=== PATIENT | male | born 1970 | race Two or more races ===

== ENCOUNTER 2023-08-30 05:51 | Inpatient (IN) | payer BC, OTHER ==
[~2023-08-30] VITALS: Ht 185.4 cm; Wt 80.8 kg
[2023-08-30 06:43] LABS: Basophils # (auto) 0.1 10 ^3/uL (0-0.2); Basophils % (auto) 0.5 % (0.0-2.0); Eosinophils # (auto) 0.1 10 ^3/uL (0-0.8); Hemoglobin 14.8 g/dL (13.5-17.5); Lymphocytes # (auto) 1.2 10 ^3/uL (0.4-5.4); Lymphocytes % (auto) 7.9 % (10.0-50.0); Mean Corpuscular Hemoglobin 30.2 pg (28.0-32.0); Mean Corpuscular Hgb Conc. 34.4 g/dL (32.0-36.0); Mean Corpuscular Volume 87.7 fL (80.0-100.0); Monocytes # (auto) 1.3 10 ^3/uL (0-1.3); Monocytes % (auto) 8.8 % (0.0-12.0); Neutrophils # (auto) 12.4 10 ^3/uL (1.6-8.6); Neutrophils % (auto) 81.8 % (37.0-80.0); Red Blood Cells 4.91 10^6/uL (4.5-5.90); Red Cell Distribution Width 12.6 % (11.8-14.3); White Blood Cell 15.2 10^3/uL (4.4-10.8)
[2023-08-30 07:02] LABS: Alanine Aminotransferase 12 U/L (7-40); Alkaline Phosphatase 61 U/L (46-116); Anion Gap 9 (5-15); Aspartate Aminotransferase 9 U/L (13-40); BUN/Creatinine Ratio 6.9 (10.0-20.0); Blood Urea Nitrogen 7 mg/dL (9-23); Carbon Dioxide 29 mmol/L (20-30); Chloride 94 mmol/L (98-107); Glucose 324 mg/dL (74-106); Lipase 55 U/L (12-53); Potassium 4.2 mmol/L (3.5-5.1); Sodium 132 mmol/L (136-145)
[2023-08-30 07:03] LABS: Albumin 4.7 g/dL (3.2-4.8); Bilirubin, Total 0.5 mg/dL (0.2-1.0); Total Protein 7.8 g/dL (5.7-8.2)
[2023-08-30 08:42] LABS: Urine Bacteria NONE SEEN /hpf (None Seen); Urine Blood Negative /uL (Negative); Urine Clarity Clear (Clear); Urine Color Yellow (Yellow); Urine Protein, UAD 1+ (Negative); Urine Specific Gravity 1.037 (1.001-1.035); Urine Urobilinogen Normal (Negative); Urine WBC 2 /hpf (0 - 3)
[2023-08-30] MEDS ORDERED: HYDROmorphone HCL 2 MG/ML VL/or syr IV ONE ×2 (10:30→16:30)
[2023-08-30] MEDS ORDERED: DONNATAL 5ml ORAL Elix (BELLADONNA ALK-PHENOBARB) PO ONE (10:30)
[2023-08-30] MEDS ORDERED: SODIUM CHLORIDE 0.9% 1,000 ML IVB ONE (10:30)
[2023-08-30] MEDS ORDERED: ONDANSETRON HCL 4 MG/2 ML VIAL IV ONE (10:30)
[2023-08-30] MEDS ORDERED: LIDOCAINE VISCOUS 2% 15ML UD PO ONE (10:30)
[2023-08-30] MEDS ORDERED: MAALOX PLUS or MAALOX 30 ML PO ONE (10:30)
[2023-08-30] MEDS ORDERED: IOHEXOL 300 MG/ML 100ML BOTTLE IJ ONE (10:48)
[2023-08-30] MEDS ORDERED: SODIUM CHLORIDE 0.9% 1,000 ML IV ONE (12:00)
[2023-08-30] MEDS ORDERED: PIPERACILLIN-TAZOB 3.375GM 100 ML IV ONE (12:00)
[2023-08-30 12:02] VITALS: PULSE 90; RESP 16; O2SAT 97
[2023-08-30] MEDS ORDERED: InsuLIN REG 1unit/0.01ml Soln (100units/ml) IV ONE (12:30)
[2023-08-30] MEDS ORDERED: LIDOCAINE 1%-Mpf/Epinephrine 1:200,000 30ml VIAL ONE (12:31)
[2023-08-30] MEDS ORDERED: BUPIVACAINE 0.5% P/F INJ 10 ML VIAL ONE (12:32)
[2023-08-30] MEDS ORDERED: SUCCINYLCHOLINE CHLORIDE 20 MG/ML 10ML VIAL IV ONE (13:04)
[2023-08-30] MEDS ORDERED: fentaNYL CITRATE 100 MCG/2 ML VL ONE ×2 (13:05→14:31)
[2023-08-30] MEDS ORDERED: MEPERIDINE HCL (50 MG/ML) 1 ML VIAL ONE (13:05)
[2023-08-30] MEDS ORDERED: MIDAZOLAM HCL 2MG/2ML 2ml VIAL (1mg/ml) ONE (13:05)
[2023-08-30] MEDS ORDERED: LIDOCAINE 2% JELLY 11ml (GLYDO) ONE (13:07)
[2023-08-30] MEDS ORDERED: DexAMETHasone SOD PHOS 10MG/1ML VIAL INJ ONE (13:31)
[2023-08-30] MEDS ORDERED: PROPOFOL 10 MG/ML 20 ML IV ONE (13:31)
[2023-08-30] MEDS ORDERED: ONDANSETRON HCL 4 MG/2 ML VIAL IV PRN (13:45)
[2023-08-30] MEDS ORDERED: fentaNYL CITRATE 100 MCG/2 ML VL IV PRN (13:45)
[2023-08-30] MEDS ORDERED: MORPHINE SULFATE 4 MG/ML SYR/VIAL IV PRN (13:45)
[2023-08-30] MEDS ORDERED: ACCU-CHEK COMFORT CURVE STRIP VI ONE (13:45)
[2023-08-30] MEDS ORDERED: MIDAZOLAM HCL 2MG/2ML 2ml VIAL (1mg/ml) IV PRN (13:45)
[2023-08-30] MEDS ORDERED: ePHEDrine SULFATE 50 MG/ML AMP IV PRN (13:45)
[2023-08-30] MEDS ORDERED: LABETALOL HCL 5 MG/ML 4ML SYRINGE IV PRN (13:45)
[2023-08-30] MEDS ORDERED: MEPERIDINE HCL (25 MG/ML) 1ML VIAL ONE (13:55)
[2023-08-30 13:57] LABS: INR 1.1 (0.9-1.15); Partial Thromboplastin Time 31.8 SEC (24.5-34.5); Prothrombin Time 11.5 sec (9.3-11.8)
[2023-08-30] MEDS ORDERED: ROCURONIUM 10MG/ML 10ML VIAL IV ONE (14:40)
[2023-08-30] MEDS ORDERED: SUGAMMADEX 200mg/2ml Vial (100MG/ML) IV ONE (15:02)
[2023-08-30] MEDS: HYDROmorphone HCL 2 MG/ML VL/or syr IV ONE ×2 (15:29→15:39)
[2023-08-30] MEDS ORDERED: ceFAZolin 1GM/50ML 50 ML IV ONE (15:45)
[2023-08-30] MEDS ORDERED: CEFTRIAXONE SODIUM 2 GM in D5W 5% 100 ML IV ONE (15:45)
[2023-08-30] MEDS ORDERED: D5W/SOD CHL 0.45%/KCL 20MEQ 1,000 ML IV ONE (15:45)
[2023-08-30] MEDS: HYDROmorphone HCL 2 MG/ML VL/or syr IV PRN ×2 (15:49→15:59)
[2023-08-30] MEDS ORDERED: NITROGLYCERIN 0.4 MG SL TAB SL PRN (16:30)
[2023-08-30] MEDS ORDERED: MORPHINE SULFATE INJ 2 MG/ml SYRG IV PRN (16:30)
[2023-08-30] MEDS ORDERED: GLIP10TA9 PO (17:20)
[2023-08-30] MEDS ORDERED: FENO145T27 PO (17:20)
[2023-08-30] MEDS ORDERED: METF-370 PO (17:20)
[2023-08-30] MEDS ORDERED: LOSA25TA15 PO (17:20)
[2023-08-30 17:32] VITALS: BP_SYST 117; PULSE 99; RESP 19; TEMP 98.1; O2SAT 97
[2023-08-30 20:00] VITALS: BP 124/80; PULSE 90; RESP 18; RESP 20; TEMP 97.9; O2SAT 98
[2023-08-30] MEDS: MORPHINE SULFATE INJ 2 MG/ml SYRG IV PRN (21:22)
[2023-08-30 22:00] VITALS: BP 124/80; PULSE 102; RESP 20; TEMP 98.1; O2SAT 98
[2023-08-30] MEDS ORDERED: DEXTROSE (50%) 50ML SYRG IV PRN (23:15)
[2023-08-30] MEDS ORDERED: SODIUM CHLORIDE 0.9% 1,000 ML IV SCH (23:30)
[2023-08-31] MEDS: MORPHINE SULFATE INJ 2 MG/ml SYRG IV PRN (03:33)
[2023-08-31 05:00] VITALS: BP 119/81; PULSE 94; RESP 17; TEMP 97.7; O2SAT 99
[2023-08-31] MEDS: ACCU-CHEK COMFORT CURVE STRIP VI SCH ×4 (05:39→17:29)
[2023-08-31] MEDS: InsuLIN REG 1unit/0.01ml Soln (100units/ml) SC SCH ×4 (05:45→17:29)
[2023-08-31 07:06] LABS: Basophils # (auto) 0 10 ^3/uL (0-0.2); Basophils % (auto) 0.3 % (0.0-2.0); Eosinophils # (auto) 0 10 ^3/uL (0-0.8); Hematocrit 36.6 % (41.0-53.0); Hemoglobin 12.7 g/dL (13.5-17.5); Lymphocytes # (auto) 1.2 10 ^3/uL (0.4-5.4); Lymphocytes % (auto) 9.5 % (10.0-50.0); Mean Corpuscular Hemoglobin 30.8 pg (28.0-32.0); Mean Corpuscular Hgb Conc. 34.7 g/dL (32.0-36.0); Mean Corpuscular Volume 88.7 fL (80.0-100.0); Monocytes # (auto) 1.1 10 ^3/uL (0-1.3); Monocytes % (auto) 8.8 % (0.0-12.0); Neutrophils # (auto) 10.2 10 ^3/uL (1.6-8.6); Neutrophils % (auto) 81.4 % (37.0-80.0); Nucleated Red Blood Cells % 0.1 %; Red Blood Cells 4.13 10^6/uL (4.5-5.90); Red Cell Distribution Width 12.5 % (11.8-14.3); White Blood Cell 12.6 10^3/uL (4.4-10.8)
[2023-08-31 07:07] LABS: Anion Gap 13 (5-15); Carbon Dioxide 24 mmol/L (20-30); Chloride 96 mmol/L (98-107); Potassium 4.1 mmol/L (3.5-5.1); Sodium 133 mmol/L (136-145)
[2023-08-31 07:08] LABS: Calcium 8.9 mg/dL (8.7-10.4)
[2023-08-31 07:13] LABS: BUN/Creatinine Ratio 7.1 (10.0-20.0); Blood Urea Nitrogen 8 mg/dL (9-23); Glucose 265 mg/dL (74-106)
[2023-08-31] MEDS ORDERED: HYDROmorphone HCL 2 MG/ML VL/or syr IV ONE (08:45)
[2023-08-31 09:00] VITALS: BP 118/73; PULSE 83; RESP 20; TEMP 98.4; O2SAT 98
[2023-08-31] MEDS: SODIUM CHLORIDE 0.9% 1,000 ML IV SCH (09:45)
[2023-08-31] MEDS ORDERED: metroNIDAZOLE 500MG/100ML 100 ML IV ONE (10:00)
[2023-08-31 13:00] VITALS: BP 118/78; PULSE 91; RESP 20; TEMP 98; O2SAT 96
[2023-08-31] MEDS: HYDROmorphone HCL 2 MG/ML VL/or syr IV PRN ×3 (14:11→22:08)
[2023-08-31 16:36] VITALS: BP 120/73; PULSE 99; RESP 20; TEMP 98.3; O2SAT 100
[2023-08-31] MEDS: metroNIDAZOLE 500MG/100ML 100 ML IV SCH (17:29)
[2023-08-31 20:00] VITALS: PULSE 107; RESP 18; O2SAT 96
[2023-08-31] MEDS: ONDANSETRON HCL 4 MG/2 ML VIAL IV PRN (22:07)
[2023-08-31 23:43] VITALS: BP 110/71; PULSE 107; RESP 19; TEMP 98.8; O2SAT 96
[2023-09-01] VITALS (7 sets, daily range): BP systolic 107–143; BP diastolic 56–86; PULSE 90–117; RESP 17–20; TEMP 97.5–98.4; O2SAT 92–98
[2023-09-01] MEDS: ACCU-CHEK COMFORT CURVE STRIP VI SCH ×5 (00:06→23:59)
[2023-09-01] MEDS: InsuLIN REG 1unit/0.01ml Soln (100units/ml) SC SCH ×4 (00:08→18:25)
[2023-09-01] MEDS: SODIUM CHLORIDE 0.9% 1,000 ML IV SCH ×3 (00:09→13:25)
[2023-09-01] MEDS: ONDANSETRON HCL 4 MG/2 ML VIAL IV PRN ×5 (01:47→20:27)
[2023-09-01] MEDS: HYDROmorphone HCL 2 MG/ML VL/or syr IV PRN ×5 (01:52→20:24)
[2023-09-01] MEDS: metroNIDAZOLE 500MG/100ML 100 ML IV SCH ×3 (01:52→18:15)
[2023-09-02] MEDS: InsuLIN REG 1unit/0.01ml Soln (100units/ml) SC SCH ×4 (00:09→18:36)
[2023-09-02] MEDS: HYDROmorphone HCL 2 MG/ML VL/or syr IV PRN ×6 (00:46→22:32)
[2023-09-02] MEDS: ONDANSETRON HCL 4 MG/2 ML VIAL IV PRN ×4 (00:54→22:27)
[2023-09-02] MEDS: metroNIDAZOLE 500MG/100ML 100 ML IV SCH ×3 (02:07→18:20)
[2023-09-02 05:00] VITALS: BP 130/92; PULSE 99; RESP 22; TEMP 97.5; O2SAT 95
[2023-09-02] MEDS: ACCU-CHEK COMFORT CURVE STRIP VI SCH ×3 (05:47→18:30)
[2023-09-02 08:00] VITALS: BP 134/86; PULSE 100; RESP 18; RESP 20; TEMP 98.6; O2SAT 96
[2023-09-02 10:26] LABS: Basophils # (auto) 0 10 ^3/uL (0-0.2); Eosinophils # (auto) 0.1 10 ^3/uL (0-0.8); Eosinophils % (auto) 0.6 % (0.0-7.0); Lymphocytes # (auto) 1.1 10 ^3/uL (0.4-5.4); Mean Corpuscular Volume 87.4 fL (80.0-100.0)
[2023-09-02 10:27] LABS: Basophils % (auto) 0.2 % (0.0-2.0); Hematocrit 35.4 % (41.0-53.0); Lymphocytes % (auto) 6.4 % (10.0-50.0); Mean Corpuscular Hemoglobin 29.7 pg (28.0-32.0); Monocytes # (auto) 0.9 10 ^3/uL (0-1.3); Monocytes % (auto) 5.4 % (0.0-12.0); Neutrophils # (auto) 14.5 10 ^3/uL (1.6-8.6); Neutrophils % (auto) 87.4 % (37.0-80.0); Nucleated Red Blood Cells % 0.1 %; Red Blood Cells 4.05 10^6/uL (4.5-5.90); White Blood Cell 16.7 10^3/uL (4.4-10.8)
[2023-09-02 11:00] LABS: Chloride 100 mmol/L (98-107); Potassium 3.9 mmol/L (3.5-5.1); Sodium 140 mmol/L (136-145)
[2023-09-02 11:01] LABS: Anion Gap 10 (5-15); Calcium 8.3 mg/dL (8.5-10.1); Carbon Dioxide 30 mmol/L (20-30)
[2023-09-02 11:06] LABS: Blood Urea Nitrogen 19 mg/dL (9-23); Glucose 227 mg/dL (74-106)
[2023-09-02 12:00] VITALS: BP 139/95; PULSE 95; RESP 18; TEMP 98.1; O2SAT 95
[2023-09-02] MEDS: SODIUM CHLORIDE 0.9% 1,000 ML IV SCH (15:05)
[2023-09-02 16:00] VITALS: BP 125/82; PULSE 92; RESP 18; TEMP 97.5; O2SAT 95
[2023-09-02 20:00] VITALS: BP 128/88; PULSE 96; RESP 16; TEMP 98.3
[2023-09-02 22:00] VITALS: BP 128/88; PULSE 96; RESP 16; TEMP 98.3; O2SAT 95
[2023-09-03] VITALS (7 sets, daily range): BP systolic 119–140; BP diastolic 82–86; PULSE 82–96; RESP 14–18; TEMP 97.7–98.8; O2SAT 91–96
[2023-09-03] MEDS: ACCU-CHEK COMFORT CURVE STRIP VI SCH ×4 (00:24→18:30)
[2023-09-03] MEDS: InsuLIN REG 1unit/0.01ml Soln (100units/ml) SC SCH ×4 (00:32→18:37)
[2023-09-03] MEDS: ONDANSETRON HCL 4 MG/2 ML VIAL IV PRN ×4 (02:36→21:04)
[2023-09-03] MEDS: metroNIDAZOLE 500MG/100ML 100 ML IV SCH ×3 (02:36→18:53)
[2023-09-03] MEDS: HYDROmorphone HCL 2 MG/ML VL/or syr IV PRN ×5 (02:55→21:16)
[2023-09-03] MEDS: SODIUM CHLORIDE 0.9% 1,000 ML IV SCH ×2 (04:25→17:45)
[2023-09-04] VITALS (7 sets, daily range): BP systolic 119–130; BP diastolic 80–89; PULSE 70–95; RESP 16–19; TEMP 36.7; O2SAT 93–98
[2023-09-04] MEDS: ONDANSETRON HCL 4 MG/2 ML VIAL IV PRN ×2 (01:25→05:56)
[2023-09-04] MEDS: HYDROmorphone HCL 2 MG/ML VL/or syr IV PRN ×4 (01:28→15:20)
[2023-09-04] MEDS: ACCU-CHEK COMFORT CURVE STRIP VI SCH ×4 (01:39→17:38)
[2023-09-04] MEDS: InsuLIN REG 1unit/0.01ml Soln (100units/ml) SC SCH ×4 (01:42→17:38)
[2023-09-04] MEDS: metroNIDAZOLE 500MG/100ML 100 ML IV SCH ×3 (02:38→17:39)
[2023-09-04 06:22] LABS: Basophils # (auto) 0 10 ^3/uL (0-0.2); Eosinophils # (auto) 0.3 10 ^3/uL (0-0.8); Hemoglobin 10.6 g/dL (13.5-17.5); Lymphocytes # (auto) 1.5 10 ^3/uL (0.4-5.4); Mean Corpuscular Volume 87.3 fL (80.0-100.0); White Blood Cell 14.3 10^3/uL (4.4-10.8)
[2023-09-04 06:24] LABS: Basophils % (auto) 0.3 % (0.0-2.0); Eosinophils % (auto) 1.9 % (0.0-7.0); Lymphocytes % (auto) 10.2 % (10.0-50.0); Mean Corpuscular Hemoglobin 29.9 pg (28.0-32.0); Mean Corpuscular Hgb Conc. 34.3 g/dL (32.0-36.0); Neutrophils # (auto) 11.6 10 ^3/uL (1.6-8.6); Neutrophils % (auto) 80.6 % (37.0-80.0); Nucleated Red Blood Cells % 0.1 %; Red Blood Cells 3.55 10^6/uL (4.5-5.90); Red Cell Distribution Width 12.6 % (11.8-14.3)
[2023-09-04 06:31] LABS: Chloride 98 mmol/L (98-107); Potassium 3.5 mmol/L (3.5-5.1); Sodium 134 mmol/L (136-145)
[2023-09-04 06:32] LABS: Anion Gap 5 (5-15); Calcium 8.1 mg/dL (8.7-10.4); Carbon Dioxide 31 mmol/L (20-30)
[2023-09-04 06:37] LABS: BUN/Creatinine Ratio 15.1 (10.0-20.0); Blood Urea Nitrogen 11 mg/dL (9-23); Glucose 268 mg/dL (74-106)
[2023-09-04] MEDS: SODIUM CHLORIDE 0.9% 1,000 ML IV SCH (07:05)
[2023-09-04] MEDS ORDERED: METR-344 PO (14:52)
[2023-09-04] MEDS ORDERED: HYDR-4902 PO (14:52)
[2023-09-04] MEDS ORDERED: AUG875T PO (14:52)
== END 2023-09-04 18:19 | disposition home or self-care (01) | DRG 329 ==
LOC: ER 05:51 → OVERFLOW 16:31 → WEST WING 17:39
PROVIDERS: ADMIT Internal Medicine Pulmonary Disease; ATTEND Student in an Organized Health Care Education/Training Program
PROC: 0DTJ0ZZ Resection of Appendix, Open Approach (ICD-10-PCS; 2023-08-30)
PROC: 0WJG4ZZ Inspection of Peritoneal Cavity, Percutaneous Endoscopic Approach (ICD-10-PCS; 2023-08-30)
PROC: 0D1K0Z4 Bypass Ascending Colon to Cutaneous, Open Approach (ICD-10-PCS; 2023-08-30)
PROC: 0DTF0ZZ Resection of Right Large Intestine, Open Approach (ICD-10-PCS; principal; 2023-08-30 13:10)
PROC: 0D9670Z Drainage of Stomach with Drainage Device, Via Natural or Artificial Opening (ICD-10-PCS; 2023-08-31)
DX: K63.9 Disease of intestine, unspecified (principal); K35.33 Acute appendicitis with perforation, localized peritonitis, and gangrene, with abscess; E11.65 Type 2 diabetes mellitus with hyperglycemia; Z53.31 Laparoscopic surgical procedure converted to open procedure; Z79.4 Long term (current) use of insulin; M10.9 Gout, unspecified; R19.03 Right lower quadrant abdominal swelling, mass and lump
CPT/HCPCS: 36415; 71045; 74176; 74177; 76705; 80048; 80053; 81001; 82962; 83036; 83605; 83690; 83735; 84484; 85025; 85610; 85730; 86850; 86900; 86901; 87070; 87075; 87077; 87086; 87186; 87205; 93005; 97110; 97116; 97163; 97530; G0378; J0330; J0690; J0696; J1100; J1815; J2250; J2405; J2543; J2704; J3490; J7060

== ENCOUNTER 2024-10-01 09:21 | Inpatient (IN) | payer BC ==
[~2024-10-01] VITALS: Ht 185.4 cm; Wt 91.6 kg
[~2024-10-01 09:21] MED LIST: AUG875T PO; FENO145T27 PO; GLIP10TA9 PO; HYDR-4902 PO; LOSA-533 PO; METF-370 PO; METR-344 PO
[2024-10-01] MEDS: MORPHINE SULFATE 4 MG/ML SYR/VIAL IV ONE (10:00)
[2024-10-01 10:03] LABS: Urine Bacteria None Seen /hpf (None Seen)
--- NOTE | 2024-10-01 10:10 | ED.PDOC ---
History of Present Illness HPI Comments 54M presents to the ER w/ no prior HX associated to the c/c of ABD pain. Pt reports on having LLQ pain which started 0730 this morning, associated w/ N/V. Pain type of a 5/10. PMHx of DM. SHx of Appendectomy and Tonsillectomy. Social Hx of Vape/cigarette use, occasional alcohol use, but denies substance use. Family Hx of Kidney stones and COPD. Denies chills, fever, N/V/D, SOB, CP or other associated symptoms, modifiers, or recent injuries at this time. Chief Complaint: Flank Pain Time Seen by MD: 09:45 Primary Care Provider: PIA Novak Notes: Nurses Notes, Medications, Allergies Allergies: Coded Allergies: NO KNOWN ALLERGIES (Unverified , 08/30/23) Home Meds Active Scripts Amoxicillin & Pot Clavulanate (AUGMENTIN TABLET) 875 Mg Tb, 875 MG PO BID for 7 Days, #14 TAB Prov:TAWANA SOTO MD 09/04/23 Hydrocodone-Acetaminophen (Hydrocodone Bitartrate/AC 5-325 mg) 1 Tab Tab, 1 TAB PO TIDP PRN for 5 Days, #15 TAB Prov:TAWANA SOTO MD 09/04/23 Metronidazole (Flagyl) 500 Mg Tab, 500 MG PO TID for 7 Days, #21 TAB Prov:TAWANA SOTO MD 09/04/23 Reported Medications Metformin Hydrochloride (Metformin Hcl) 500 Mg Tab, 1000 MG PO BID for 30 Days, MG 08/30/23 Fenofibrate (FENOFIBRATE) 145 Mg Tab, 145 MG PO DAILY, TAB 08/30/23 Losartan Potassium (Losartan Potassium) 25 Mg Tab, 25 MG PO DAILY for 30 Days, MG 08/30/23 Glipizide (Glipizide) 10 Mg Tab, 10 MG PO BID for 30 Days, MG 08/30/23 Information Source: Patient, Spouse Mode of Arrival: Ambulatory Severity: Moderate Timing: Hours Duration: Since onset, Hours Prehospital treatment: None Past Medical History PAST MEDICAL HISTORY: DM Surgical History: Appendectomy, Tonsillectomy Family History Family History: Reviewed,noncontributory to illness, Family hx of Kidney seven Family History (Other): Familyt Hx of Kindey Stones and COPD Social History Smoker: Cigarettes, Other (Vape) Alcohol: Occasionally Drugs: Denies Drug Use Lives In: Home Constitutional: denies: chills, diaphoresis, fatigue, fever, malaise, sweats, weakness, others EENTM: denies: blurred vision, double vision, ear bleeding, ear discharge, ear drainage, ear pain, ear ringing, eye pain, eye redness, hearing loss, mouth pain, mouth swelling, nasal discharge, nose bleeding, nose congestion, nose pain, photophobia, tearing, throat pain, throat swelling, voice changes, others Respiratory: denies: cough, hemoptysis, orthopnea, SOB at rest, shortness of breath, SOB with excertion, stridor, wheezing, others Cardiovascular: denies: chest pain, dizzy spells, diaphoresis, Dyspnea on exertion, edema, irregular heart beat, left arm pain, lightheadedness, palpitations, PND, syncope, others Gastrointestinal: reports: abdominal pain, nausea, vomiting; denies: abdomen distended, blood streaked bowels, constipated, diarrhea, dysphagia, difficulty swallowing, hematemesis, melena, poor appetite, poor fluid intake, rectal bleeding, rectal pain, others Genitourinary: denies: burning, dysuria, flank pain, frequency, hematuria, incontinence, penile discharge, penile sore, pain, testicle pain, testicle swelling, urgency, others Neurological: denies: dizziness, fainting, headache, left sided numbness, left sided weakness, numbness, paresthesia, pre-existing deficit, right sided numbness, right sided weakness, seizure, speech problems, tingling, tremors, weakness, others Musculoskeletal: denies: back pain, gout, joint pain, joint swelling, muscle pain, muscle stiffness, neck pain, others Integumetry: denies: bruises, change in color, change in hair/nails, dryness, laceration, lesions, lumps, rash, wounds, others Allergic/Immunocompromised: denies: Difficulty Healing, Frequent Infections, Hives, Itching, others Hematologic/Lymphatic: denies: anemia, blood clots, easy bleeding, easy bru ising, swollen glands, others Endocrine: denies: excessive hunger, excessive sweating, excessive thirst, e xcessive urination, flushing, intolerance to cold, intolerance to heat, unexplained weight gain, unexplained weight loss, others Psychiatric: denies: anxiety, bipolar disorder, depression, hopeless, panic disorder, schizophrenia, sleepless, suicidal, others All Other Systems: Reviewed and Negative Physical Exam General Appearance: Moderate Distress HEENT: Normal ENT Inspection, Pharynx Normal, TMs Normal Neck: Full Range of Motion, Non-Tender, Normal, Normal Inspection Respiratory: Chest Non-Tender, Lungs Clear, No Accessory Muscle Use, No Respiratory Distress, Normal Breath Sounds Cardiovascular: No Edema, No JVD, No Murmur, No Gallop, Normal Peripheral Pulses, Regular Rate/Rhythm Breast Exam: Deferred Gastrointestinal: LLQ, No Organomegaly, No Pulsatile Mass, Normal Bowel Sounds, Soft, Tenderness Genitalia: Deferred Pelvic: Deferred Rectal: Deferred Extremities: No calf tenderness, Normal capillary refill, No pedal edema Musculoskeletal : Apperance: Normal Neurologic: Alert, warranty coordinator II-XII nml as Tested, Motor Weakness, Normal Affect, Normal Mood, No Sensory Deficits Cerebellar Function: Normal Reflexes: Normal Skin: Dry, Normal Color, Warm Lymphatic: No Adenopathy Was a procedure done? Was a procedure done?: No Differential Dx Considerations may include: Diverticulitis, kidney stones, UTI X-Ray, Labs, Meds, VS Vital Signs Date Time Temp Pulse Resp B/P (MAP) Pulse Ox O2 Delivery O2 Flow Rate FiO2 10/01/24 11:38 86 21 133/86 10/01/24 11:15 112 24 155/100 10/01/24 10:29 67 12 100 Room Air* 0 21 10/01/24 10:29 74 16 139/83 (101) 100 10/01/24 09:51 97.1 84 20 133/86 (102) 99 Lab Test 10/01/24 10:09 10/01/24 10:02 Range/Units White Blood Count 12.1 H 4.4-10.8 10^3/uL Red Blood Count 5.06 4.5-5.90 10^6/uL Hemoglobin 16.0 13.5-17.5 g/dL Hematocrit 45.7 41.0-53.0 % Mean Corpuscular Volume 90.5 80.0-100.0 fL Mean Corpuscular Hemoglobin 31.7 28.0-32.0 pg Mean Corpuscular Hemoglobin Concent 35.0 32.0-36.0 g/dL Red Cell Distribution Width 13.1 11.8-14.3 % Platelet Count 261 140-450 10^3/uL Mean Platelet Volume 7.4 6.9-10.8 fL Neutrophils (%) (Auto) 80.8 H 37.0-80.0 % Lymphocytes (%) (Auto) 12.9 10.0-50.0 % Monocytes (%) (Auto) 4.4 0.0-12.0 % Eosinophils (%) (Auto) 1.5 0.0-7.0 % Basophils (%) (Auto) 0.4 0.0-2.0 % Neutrophils # (Auto) 9.8 H 1.6-8.6 10 ^3/uL Lymphocytes # (Auto) 1.6 0.4-5.4 10 ^3/uL Monocytes # (Auto) 0.5 0-1.3 10 ^3/uL Eosinophils # (Auto) 0.2 0-0.8 10 ^3/uL Basophils # (Auto) 0 0-0.2 10 ^3/uL Nucleated Red Blood Cells 0.1 % Sodium Level 138 136-145 mmol/L Potassium Level 4.1 3.5-5.1 mmol/L Chloride Level 104 98-107 mmol/L Carbon Dioxide Level 27 20-31 mmol/L Anion Gap 7 5-15 Blood Urea Nitrogen 12 9-23 mg/dL Creatinine 1.28 0.700-1.30 mg/dL Glomerular Filtration Rate Calc 67 >90 mL/min BUN/Creatinine Ratio 9.4 L 10.0-20.0 Serum Glucose 182 H 74-106 mg/dL Calcium Level 9.8 8.7-10.4 mg/dL Total Bilirubin 0.6 0.2-1.0 mg/dL Aspartate Amino Transferase (AST) 16 13-40 U/L Alanine Aminotransferase (ALT) 24 7-40 U/L Alkaline Phosphatase 45 L 46-116 U/L Total Protein 7.1 5.7-8.2 g/dL Albumin 4.7 3.2-4.8 g/dL Lipase 116 H 12-53 U/L Urine Color Red H Yellow Urine Clarity Cloudy H Clear Urine pH 5.5 5.0-9.0 Urine Specific [place] 1.028 1.001-1.035 Urine Protein 2+ H Negative Urine Ketones Negative Negative Urine Blood 3+ H Negative /uL Urine Nitrite Negative Negative Urine Bilirubin Negative Negative Urine Urobilinogen Normal Negative mg/dL Urine Leukocyte Esterase 1+ Negative /uL Urine RBC 8238 0 - 3 /hpf Urine WBC 16 0 - 3 /hpf Urine Squamous Epithelial Cells Few <5 /hpf Urine Bacteria None seen None Seen /hpf Urine Glucose Normal Normal mg/dL Current Medications Medications (Trade) Dose Ordered Sig/Elizabeth Route Start Time Stop Time Status Last Admin Ondansetron HCl (Zofran) 4 mg ONCE ONCE IV 10/01/24 10:00 10/01/24 10:01 DC 10/01/24 11:09 Sodium Chloride 500 ml @ 500 mls/hr Q1H ONCE IVB 10/01/24 10:00 10/01/24 10:59 DC 10/01/24 11:09 Hydromorphone HCl (Dilaudid Injection) 1 mg ONCE ONCE IV 10/01/24 11:15 10/01/24 11:16 DC 10/01/24 11:15 CT scan of the abdomen and pelvis shows: IMPRESSION: 1. Concentric wall thickening of the descending colon and sigmoid colon, suggestive of infectious/inflammatory colitis The patient was given Zofran 4 mg IV push The patient was given a normal saline bolus at 500 cc The patient was given Dilaudid 1 mg IV push Based on the findings on the CT scan, the patient was now being given Flagyl 500 mg IV push The urine test is also positive for UTI At this time, the patient's lipase is elevated at 116 which is consistent with possible pancreatitis The CBC shows an elevated white blood cell count of 12.1 At this time we are going to admit the patient to the hospitalist. We have discussed the findings with the patient and they are in agreement with the management. Images Reviewed?: Images reviewed and evaluated by me Time of 1ST Reevaluation: 10:15 Reevaluation 1ST: Unchanged Patient Education/Counseling: Diagnosis, Treatment, Prognosis Family Education/Counseling: Diagnosis, Treatment, Prognosis Departure 1 Departure Time of Disposition: 11:48 Impression: Primary Impression: Intractable abdominal pain Additional Impressions: Colitis UTI (urinary tract infection) Qualified Codes: N30.00 - Acute cystitis without hematuria Disposition: ADMITTED INPATIENT Admit to: Med Surg Condition: Fair Critical Care Note Critical Care Time?: No Stability Stability form required: Yes Unstable for transfer: ED Physician Assesment (Clinical assesment) Heart Score Heart Score: Heart Score Response (Comments) Value History N/A 0 EKG N/A 0 Age N/A 0 Risk Factors N/A 0 Troponin N/A 0 Total 0 I personally scribed for AFRTUN CELESTE MD ([email or web address]) on 10/01/24 at 10:10. Electronically submitted by Juan José Green ([email or web address]). FARTUN CELESTE MD Oct 01, 2024 10:10
[2024-10-01 10:13] LABS: Urine Blood 3+ /uL (Negative); Urine Color Red (Yellow); Urine Protein, UAD 2+ (Negative); Urine Specific Gravity 1.028 (1.001-1.035); Urine Urobilinogen Normal (Negative); Urine WBC 16 /hpf (0 - 3); Urine pH 5.5 (5.0-9.0)
[2024-10-01 10:14] LABS: Urine Clarity Cloudy (Clear)
[2024-10-01 10:16] LABS: Basophils # (auto) 0 10 ^3/uL (0-0.2); Basophils % (auto) 0.4 % (0.0-2.0); Eosinophils # (auto) 0.2 10 ^3/uL (0-0.8); Eosinophils % (auto) 1.5 % (0.0-7.0); Hematocrit 45.7 % (41.0-53.0); Lymphocytes # (auto) 1.6 10 ^3/uL (0.4-5.4); Lymphocytes % (auto) 12.9 % (10.0-50.0); Mean Corpuscular Hemoglobin 31.7 pg (28.0-32.0); Mean Corpuscular Volume 90.5 fL (80.0-100.0); Monocytes # (auto) 0.5 10 ^3/uL (0-1.3); Monocytes % (auto) 4.4 % (0.0-12.0); Neutrophils # (auto) 9.8 10 ^3/uL (1.6-8.6); Neutrophils % (auto) 80.8 % (37.0-80.0); Nucleated Red Blood Cells % 0.1 %; Platelet Count (auto) 261 10^3/uL (140-450); Red Blood Cells 5.06 10^6/uL (4.5-5.90); Red Cell Distribution Width 13.1 % (11.8-14.3); White Blood Cell 12.1 10^3/uL (4.4-10.8)
[2024-10-01 10:29] VITALS: PULSE 67; RESP 12; O2SAT 100
[2024-10-01 10:34] LABS: Alanine Aminotransferase 24 U/L (7-40); Albumin 4.7 g/dL (3.2-4.8); Alkaline Phosphatase 45 U/L (46-116); Anion Gap 7 (5-15); Aspartate Aminotransferase 16 U/L (13-40); BUN/Creatinine Ratio 9.4 (10.0-20.0); Bilirubin, Total 0.6 mg/dL (0.2-1.0); Blood Urea Nitrogen 12 mg/dL (9-23); Calcium 9.8 mg/dL (8.7-10.4); Carbon Dioxide 27 mmol/L (20-31); Chloride 104 mmol/L (98-107); Glucose 182 mg/dL (74-106); Lipase 116 U/L (12-53); Potassium 4.1 mmol/L (3.5-5.1); Sodium 138 mmol/L (136-145); Total Protein 7.1 g/dL (5.7-8.2)
[2024-10-01] MEDS ORDERED: HYDROMORPHONE HCL 1 MG/ML INJ IV ONE (11:00)
[2024-10-01] MEDS: ONDANSETRON HCL 4 MG/2 ML VIAL IV ONE (11:09)
[2024-10-01] MEDS: SODIUM CHLORIDE 0.9% 500 ML IVB ONE (11:09)
[2024-10-01] MEDS: HYDROmorphone HCL 2 MG/ML VL/or syr IV ONE (11:15)
--- NOTE | 2024-10-01 11:22 | DVH ---
Exam: CT CT AB PEL WO CON-NO ORAL OR IV History: llq pain Comparison Study: CT CT AB PEL WO CON-NO ORAL OR IV on DOS: 09/02/23, CT CT AB PEL WITH IV CON ONLY on DOS: 08/30/23 Technique: Multidetector spiral CT of the abdomen was performed from lung bases to pubic symphysis. Imaging was performed without IV contrast. Axial, coronal and sagittal multiplanar reformats were ob tained from the axial data set by the technologist. Radiation Dose : 1. Abdomen/Pelvis: CTDIvol 17 mGy, DLP 1120.19 mGy*cm. Findings: Evaluation of solid organs is limited due to lack of intravenous contrast use. Lung Bases: No acute or significant lung base finding. Normal heart size. No pleural or pericardial effusion. Liver: The liver is normal in size. No focal lesions. Gallbladder and Biliary Tree: Unremarkable Spleen: Unremarkable Pancreas: The pancreas is grossly normal in appearance. Adrenal Glands: Unremarkable Kidneys: Kidneys are grossly normal without calculi or hydronephrosis. Bladder: Grossly unremarkable for degree of distention. Bowel: The stomach is grossly normal in appearance. Concentric wall thickening of the descending colo n and sigmoid colon, suggestive of infectious/inflammatory colitis The appendix is not visualized; h owever, no secondary findings of acute appendicitis identified. Ascites: Absent Lymphadenopathy: No mesenteric, retroperitoneal or periportal lymphadenopathy. Abdominal Wall and Mesentery: Unremarkable. Vasculature: The visualized abdominal aorta is normal in size and caliber. Evaluation of abdominal a nd pelvic vessels is limited due to lack of intravenous contrast. Pelvic Organs: Unremarkable Musculoskeletal: No aggressive focal bony lesions, acute fractures or dislocation. IMPRESSION: 1. Concentric wall thickening of the descending colon and sigmoid colon, suggestive of infectious/inf lammatory colitis Radiation optimization: All CT scans at this facility use at least one of these dose optimization milli hniques: automated exposure control mA and/or kV adjustment per patient size (includes targeted exam s where dose is matched to clinical indication) or iterative reconstruction.
[2024-10-01] MEDS: metroNIDAZOLE 500MG/100ML 100 ML IV ONE (12:06)
--- NOTE | 2024-10-01 12:44 | DVHHP2 ---
History of Present Illness Reason for Visit: Abdominal pain History of Present Illness This 54-year-old male presents in the ED with a chief complaint of abdominal pain. The patient reports two weeks ago he was diagnosed with hematuria for which he was seen by urologist and all tests came back negative at that time. The patient reports continued to have blood in the urine but today he woke up with severe abdominal pain to left lower quadrant associated with nausea, vomiting, and some diarrhea for which prompted the patient to visit the emergency department. The patient denies hematemesis or melena. Past medical history of diabetes, hypertension, hyperlipidemia, tobacco use, and hematuria. Past Medical History As stated in HPI Past Surgical History Appendectomy Tonsillectomy Family History Reviewed, non-contributory to the management of this case. Past Social History Tobacco use Review of Systems Constitutional: Yes: Malaise; No: Fever, Chills, Sweats, Weakness, Other Eyes: No: Pain, Vision change, Conjunctivae inflammation, Eyelid inflammation, Other, Redness ENT: No: Ear pain, Ear discharge, Nose pain, Nose discharge, Nose congestion, Mouth pain, Mouth swelling, Throat pain, Throat swelling, Other Respiratory: No: Cough, Dry, Shortness of breath, SOB with excertion, Wheezing, Hemoptysis, Pleuritic Pain, Sputum, Wheezing, Other Cardiovascular: No: Chest Pain, Palpitations, Orthopnea, Paroxysmal Noc. Dyspnea, Edema, Lt Headedness, Other Gastrointestinal: Nausea, Vomiting, Abdominal Pain, Diarrhea; No: Constipation, Melena, Hematochezia, Other Genitourinary: No Dysuria, No Frequency, No Incontinence; Hematuria; No Retention; Other (Left flank pain) Musculoskeletal: No: other, neck pain, shoulder pain, arm pain, back pain, hand pain, leg pain, foot pain Skin: No: Rash, Lesions, Jaundice, Bruising, Other Neurological: No: Weakness, Numbness, Incoordination, Change in speech, Confusion, Seizures, Other Allergies: Coded Allergies: NO KNOWN ALLERGIES (Unverified , 08/30/23) Exam Vital Signs Vital Signs Date Time Temp Pulse Resp B/P (MAP) Pulse Ox O2 Delivery O2 Flow Rate FiO2 10/01/24 11:38 86 21 133/86 10/01/24 10:29 100 Room Air* 0 21 10/01/24 09:51 97.1 General Appearance: Alert, Oriented X3, Cooperative, moderate distress HEENT: Atraumatic, PERRLA, EOMI, Mucous membr. moist/pink Respiratory: Clear to auscultation Cardiovascular: Regular rate, Normal S1, Normal S2 Abdominal: Normal bowel sounds, Soft, Other (Mild tenderness to left lower quadrant, left CVA tenderness) Extremities: No clubbing, No cyanosis, No edema, Normal pulses Skin: No rashes, No breakdown, No significant lesion Neuro: Normal gait, Normal speech, Strength at 5/5 X4 ext, Normal tone Labs/Xrays Labs Test 10/01/24 10:09 10/01/24 10:02 Range/Units White Blood Count 12.1 H 4.4-10.8 10^3/uL Red Blood Count 5.06 4.5-5.90 10^6/uL Hemoglobin 16.0 13.5-17.5 g/dL Hematocrit 45.7 41.0-53.0 % Mean Corpuscular Volume 90.5 80.0-100.0 fL Mean Corpuscular Hemoglobin 31.7 28.0-32.0 pg Mean Corpuscular Hemoglobin Concent 35.0 32.0-36.0 g/dL Red Cell Distribution Width 13.1 11.8-14.3 % Platelet Count 261 140-450 10^3/uL Mean Platelet Volume 7.4 6.9-10.8 fL Neutrophils (%) (Auto) 80.8 H 37.0-80.0 % Lymphocytes (%) (Auto) 12.9 10.0-50.0 % Monocytes (%) (Auto) 4.4 0.0-12.0 % Eosinophils (%) (Auto) 1.5 0.0-7.0 % Basophils (%) (Auto) 0.4 0.0-2.0 % Neutrophils # (Auto) 9.8 H 1.6-8.6 10 ^3/uL Lymphocytes # (Auto) 1.6 0.4-5.4 10 ^3/uL Monocytes # (Auto) 0.5 0-1.3 10 ^3/uL Eosinophils # (Auto) 0.2 0-0.8 10 ^3/uL Basophils # (Auto) 0 0-0.2 10 ^3/uL Nucleated Red Blood Cells 0.1 % Sodium Level 138 136-145 mmol/L Potassium Level 4.1 3.5-5.1 mmol/L Chloride Level 104 98-107 mmol/L Carbon Dioxide Level 27 20-31 mmol/L Anion Gap 7 5-15 Blood Urea Nitrogen 12 9-23 mg/dL Creatinine 1.28 0.700-1.30 mg/dL Glomerular Filtration Rate Calc 67 >90 mL/min BUN/Creatinine Ratio 9.4 L 10.0-20.0 Serum Glucose 182 H 74-106 mg/dL Calcium Level 9.8 8.7-10.4 mg/dL Total Bilirubin 0.6 0.2-1.0 mg/dL Aspartate Amino Transferase (AST) 16 13-40 U/L Alanine Aminotransferase (ALT) 24 7-40 U/L Alkaline Phosphatase 45 L 46-116 U/L Total Protein 7.1 5.7-8.2 g/dL Albumin 4.7 3.2-4.8 g/dL Lipase 116 H 12-53 U/L Urine Color Red H Yellow Urine Clarity Cloudy H Clear Urine pH 5.5 5.0-9.0 Urine Specific [place] 1.028 1.001-1.035 Urine Protein 2+ H Negative Urine Ketones Negative Negative Urine Blood 3+ H Negative /uL Urine Nitrite Negative Negative Urine Bilirubin Negative Negative Urine Urobilinogen Normal Negative mg/dL Urine Leukocyte Esterase 1+ Negative /uL Urine RBC 8238 0 - 3 /hpf Urine WBC 16 0 - 3 /hpf Urine Squamous Epithelial Cells Few <5 /hpf Urine Bacteria None seen None Seen /hpf Urine Glucose Normal Normal mg/dL PROCEDURE(s): ABPL - CT AB PEL WO CON-NO ORAL OR IV REASON: llq pain ORDER NUMBER(s): [id number], ACCESSION NUMBER(s): [id number] Exam: CT CT AB PEL WO CON-NO ORAL OR IV History: llq pain Comparison Study: CT CT AB PEL WO CON-NO ORAL OR IV on DOS: 09/02/23, CT CT AB PEL WITH IV CON ONLY on DOS: 08/30/23 Technique: Multidetector spiral CT of the abdomen was performed from lung bases to pubic symphysis. Imaging was performed without IV contrast. Axial, coronal and sagittal multiplanar reformats were obtained from the axial data set by the technologist. Radiation Dose : 1. Abdomen/Pelvis: CTDIvol 17 mGy, DLP 1120.19 mGy*cm. Findings: Evaluation of solid organs is limited due to lack of intravenous contrast use. Lung Bases: No acute or significant lung base finding. Normal heart size. No pleural or pericardial effusion. Liver: The liver is normal in size. No focal lesions. Gallbladder and Biliary Tree: Unremarkable Spleen: Unremarkable Pancreas: The pancreas is grossly normal in appearance. Adrenal Glands: Unremarkable Kidneys: Kidneys are grossly normal without calculi or hydronephrosis. Bladder: Grossly unremarkable for degree of distention. Bowel: The stomach is grossly normal in appearance. Concentric wall thickening of the descending colon and sigmoid colon, suggestive of infectious/inflammatory colitis The appendix is not visualized; however, no secondary findings of acute appendicitis identified. Ascites: Absent Lymphadenopathy: No mesenteric, retroperitoneal or periportal lymphadenopathy. Abdominal Wall and Mesentery: Unremarkable. Vasculature: The visualized abdominal aorta is normal in size and caliber. Evaluation of abdominal and pelvic vessels is limited due to lack of intravenous contrast. Pelvic Organs: Unremarkable Musculoskeletal: No aggressive focal bony lesions, acute fractures or dis location. IMPRESSION: 1. Concentric wall thickening of the descending colon and sigmoid colon, suggestive of infectious/inflammatory colitis Assessment/Plan Assessment/Plan # Acute abdominal pain due to possible colitis # left flank pain # acute cystitis # hematuria # nausea and vomiting Admit to medical unit CT abd pel reviewed Blood and urine culture Ceftriaxone, metronidazole Kidney ultrasound pending Pain control Antiemetics PPI IV fluid Clear liquid diet and advance as tolerated # type 2 diabetes ISS Glipizide # hypertension Losartan # dyslipidemia Fenofibrate # tobacco use Smoking cessation counseled Nicotine patch Medical plan discussed with patient and RN Plan discussed with: Patient My Orders Orders - MJ ALMAGUER Procedure Category Date Status Time Kidney US 10/01/24 Taken 11:52 Date of Service: Oct 01, 2024 Billing Provider: MJ ALMAGUER Common Visit Codes: [id number] INP/OBS CARE (HIGH) MJ ALMAGUER Oct 01, 2024 12:44
[2024-10-01] MEDS ORDERED: DEXTROSE (50%) 50ML SYRG IV PRN ×2 (12:45)
[2024-10-01] MEDS ORDERED: ACETAMINOPHEN 325 MG TAB PO PRN (12:45)
[2024-10-01] MEDS: NICOTINE 7MG/24HR TOPICAL PATCH TD ONE (13:00)
--- NOTE | 2024-10-01 13:03 | DVH ---
INDICATION: Hematuria. TECHNIQUE: Multiple real-time sonographic images of the kidneys and bladder were obtained. COMPARISON: None FINDINGS: RIGHT kidney measures 11.2 cm in length. No hydronephrosis. LEFT kidney measures 11.9 cm in length. No hydronephrosis. No large intraluminal masses are seen in the bladder. Urinary bladder is contracted and unremarkable. Slightly enlarged prostate measuring up to 51 cc. IMPRESSION: 1. No hydronephrosis or nephrolithiasis. 2. Slightly enlarged prostate measuring up to 51 cc
[2024-10-01] MEDS: MORPHINE SULFATE INJ 2 MG/ml SYRG IV PRN (13:29)
[2024-10-01] MEDS: PANTOPRAZOLE 40 MG/10 ML VIAL INJ IV ONE (13:29)
[2024-10-01] MEDS: SODIUM CHLORIDE 0.9% 1,000 ML IV SCH (13:39)
[2024-10-01] MEDS: metroNIDAZOLE 500MG/100ML 100 ML IV SCH (14:00)
[2024-10-01 14:34] VITALS: BP 130/79; PULSE 72; RESP 20; TEMP 98.4; O2SAT 98
[2024-10-01] MEDS: HYDROcodone-ACET 5/325MG TAB PO PRN (15:53)
[2024-10-01] MEDS: ACCU-CHEK COMFORT CURVE STRIP VI SCH (16:32)
[2024-10-01] MEDS: InsuLIN REG 1unit/0.01ml Soln (100units/ml) SC SCH (16:38)
[2024-10-01] MEDS ORDERED: ACCU-CHEK COMFORT CURVE STRIP VI SCH (17:00)
[2024-10-01] MEDS: ONDANSETRON HCL 4 MG/2 ML VIAL IV PRN (17:37)
[2024-10-01 18:36] LABS: Triglycerides 170 mg/dL (< 150)
[2024-10-01 18:37] LABS: LDL Cholesterol 93 mg/dL (< 100)
[2024-10-01 18:38] LABS: Cholesterol 152 mg/dL (< 200); HDL Cholesterol 45 mg/dL (40-59)
[2024-10-01 19:46] VITALS: BP 147/83; PULSE 72; RESP 18; TEMP 97.4; O2SAT 99
[2024-10-01 21:00] VITALS: BP 140/89; PULSE 82; RESP 20; TEMP 97.8; O2SAT 96
[2024-10-01 21:08] VITALS: BP 140/89; PULSE 82; RESP 20; TEMP 97.8; O2SAT 97
[2024-10-01] MEDS: glipiZIDE 5 MG TAB PO SCH (22:00)
[2024-10-01] MEDS ORDERED: INSU1.2I SC (22:56)
[2024-10-01] MEDS ORDERED: SEMA7TAB2 PO (22:56)
[2024-10-01] MEDS ORDERED: TADA5TAB11 PO (23:01)
[2024-10-02] VITALS (7 sets, daily range): BP systolic 111–138; BP diastolic 71–81; PULSE 71–91; RESP 18–23; TEMP 97.8–98.2; O2SAT 3–99
[2024-10-02 05:19] LABS: Basophils # (auto) 0.1 10 ^3/uL (0-0.2); Basophils % (auto) 0.3 % (0.0-2.0); Eosinophils # (auto) 0.3 10 ^3/uL (0-0.8); Eosinophils % (auto) 1.7 % (0.0-7.0); Hematocrit 39.4 % (41.0-53.0); Hemoglobin 13.7 g/dL (13.5-17.5); Lymphocytes # (auto) 2.9 10 ^3/uL (0.4-5.4); Lymphocytes % (auto) 19.5 % (10.0-50.0); Mean Corpuscular Hemoglobin 31.5 pg (28.0-32.0); Mean Corpuscular Hgb Conc. 34.8 g/dL (32.0-36.0); Mean Corpuscular Volume 90.4 fL (80.0-100.0); Monocytes # (auto) 0.9 10 ^3/uL (0-1.3); Monocytes % (auto) 5.8 % (0.0-12.0); Neutrophils # (auto) 10.9 10 ^3/uL (1.6-8.6); Neutrophils % (auto) 72.7 % (37.0-80.0); Platelet Count (auto) 243 10^3/uL (140-450); Red Blood Cells 4.36 10^6/uL (4.5-5.90); Red Cell Distribution Width 13.3 % (11.8-14.3)
[2024-10-02 05:46] LABS: Alanine Aminotransferase 18 U/L (7-40); Alkaline Phosphatase 38 U/L (46-116); Anion Gap 7 (5-15); Aspartate Aminotransferase 12 U/L (13-40); BUN/Creatinine Ratio 7.1 (10.0-20.0); Bilirubin, Total 0.6 mg/dL (0.2-1.0); Blood Urea Nitrogen 12 mg/dL (9-23); Calcium 8.8 mg/dL (8.7-10.4); Carbon Dioxide 26 mmol/L (20-31); Chloride 108 mmol/L (98-107); Glucose 76 mg/dL (74-106); Potassium 3.3 mmol/L (3.5-5.1); Sodium 141 mmol/L (136-145); Total Protein 5.9 g/dL (5.7-8.2)
[2024-10-02] MEDS: cefTRIAXone 1GM/50ML D5W 50 ML IV SCH (09:45)
[2024-10-02] MEDS: PANTOPRAZOLE 40 MG/10 ML VIAL INJ IV SCH (09:46)
[2024-10-02] MEDS: FENOFIBRATE 145 MG PO SCH (09:46)
[2024-10-02] MEDS: LOSARTAN POTASSIUM 25 MG TAB PO SCH (09:47)
[2024-10-02] MEDS: NICOTINE 7MG/24HR TOPICAL PATCH TD SCH (09:48)
--- NOTE | 2024-10-02 11:26 | DVHPN2 ---
Subjective The patient seen and examined at bedside. No complaint today. Reviewed: Care Plan, H&P, Labs, Medications, Previous Orders, Radiology Changes from previous H/P or p: No Changes Eyes: No Pain, No Vision change, No Conjunctivae inflammation, No Eyelid inflammation, No Other, No Redness ENT: No Ear pain, No Ear discharge, No Nose pain, No Nose discharge, No Nose congestion, No Mouth pain, No Mouth swelling, No Throat pain, No Throat swelling, No Other Cardiovascular: No Chest Pain, No Palpitations, No Orthopnea, No Paroxysmal Noc. Dyspnea, No Edema, No Lt Headedness, No Other Respiratory: No Cough, No Dry, No Shortness of breath, No SOB with excertion, No Wheezing, No Hemoptysis, No Pleuritic Pain, No Sputum, No Other Gastrointestinal: Nausea, Vomiting, Abdominal Pain, Diarrhea; No Constipation, No Melena, No Hematochezia, No Other Genitourinary: No Dysuria, No Frequency, No Incontinence; Hematuria; No Retention; Other (Left flank pain) Musculoskeletal: No other, No neck pain, No shoulder pain, No arm pain, No back pain, No hand pain, No leg pain, No foot pain Skin: No Rash, No Lesions, No Jaundice, No Bruising, No Other Objective Vitals Vital Signs Date Time Temp Pulse Resp B/P (MAP) Pulse Ox O2 Delivery O2 Flow Rate FiO2 10/02/24 10:59 71 18 111/76 10/02/24 08:00 Room Air* 0 21 10/02/24 08:00 97.9 95 97.9 Intake/Output Intake and Output 10/02/24 07:00 Intake Total 800 ml Balance 800 ml Intake IV Total 800 ml General Appearance: Alert, Cooperative, No acute distress HEENT: Atraumatic, PERRLA, EOMI, Mucous membr. moist/pink Lungs: Clear to auscultation, Normal air movement Cardiovascular: Regular rate, Normal S1, Normal S2, No murmurs, Gallops, Rubs Abdomen: Normal bowel sounds, Soft, No tenderness Neuro: Strength at 5/5 X4 ext, Cranial nerves 3-12 NL Psych/Mental Status: Mental status NL Medications Current Medications Medications Dose Ordered Sig/Elizabeth Route Start Time Stop Time Status Last Admin Dose Admin Ceftriaxone Sodium 50 ml @ 100 mls/hr DAILY@09 IV 10/02/24 09:00 10/02/24 09:45 100 MLS/HR Metronidazole 100 ml @ 100 mls/hr Q8HR IV 10/01/24 14:00 10/02/24 05:41 100 MLS/HR Pantoprazole Sodium 40 mg DAILY IV 10/02/24 10:00 10/02/24 09:46 40 MG Sodium Chloride 1,000 ml @ 100 mls/hr Q10H IV 10/01/24 12:45 10/01/24 23:12 100 MLS/HR Acetaminophen/ Hydrocodone Bitart 1 tab Q4HP PRN PO 10/01/24 12:45 10/02/24 08:44 1 TAB Ondansetron HCl 4 mg Q4HP PRN IV 10/01/24 12:45 10/02/24 06:41 4 MG Acetaminophen 650 mg Q6HP PRN PO 10/01/24 12:45 Morphine Sulfate 2 mg Q4HPRN PRN IV 10/01/24 12:45 10/02/24 10:59 2 MG Losartan Potassium 25 mg DAILY PO 10/02/24 10:00 Patient Own Medication 145 mg DAILY PO 10/02/24 10:00 Glipizide 10 mg BID PO 10/01/24 22:00 Diagnostic Test (Pha) 1 strip ACHS 10/01/24 17:00 10/02/24 05:42 1 STRIP Insulin Human Regular ACHS SC 10/01/24 17:00 Dextrose 50 ml UD PRN IV 10/01/24 12:45 Nicotine 1 patch DAILY TD 10/02/24 10:00 Diagnostic Test (Pha) 1 strip ACHS 10/01/24 17:00 Cancel Dextrose 50 ml UD PRN IV 10/01/24 12:45 Cancel Laboratory Results Laboratory Tests 10/02/24 04:50 Chemistry Test 10/02/24 04:50 Albumin 4.0 g/dL (3.2-4.8) Calcium Level 8.8 mg/dL (8.7-10.4) Total Protein 5.9 g/dL (5.7-8.2) LFT Test 10/02/24 04:50 Alanine Aminotransferase (ALT) 18 U/L (7-40) Alkaline Phosphatase 38 U/L (46-116) L Aspartate Amino Transferase (AST) 12 U/L (13-40) L Total Bilirubin 0.6 mg/dL (0.2-1.0) Urinalysis Test 10/01/24 10:02 Urine Color Red (Yellow) H Urine Clarity Cloudy (Clear) H Urine pH 5.5 (5.0-9.0) Urine Specific [place] 1.028 (1.001-1.035) Urine Protein 2+ (Negative) H Urine Ketones Negative (Negative) Urine Blood 3+ /uL (Negative) H Urine Nitrite Negative (Negative) Urine Bilirubin Negative (Negative) Urine Urobilinogen Normal mg/dL (Negative) Urine Leukocyte Esterase 1+ /uL (Negative) Urine RBC 8238 /hpf (0 - 3) Urine WBC 16 /hpf (0 - 3) Urine Squamous Epithelial Cells Few /hpf (<5) Urine Bacteria None seen /hpf (None Seen) Urine Glucose Normal mg/dL (Normal) Microbiology Microbiology Date/Time Source Procedure Growth Status 10/01/24 10:02 Voided Urine Urine Culture - Preliminary Resulted Labs and/or images reviewed: Labs reviewed by me Assessment/Plan Assessment/Plan # Acute abdominal pain due to possible colitis # left flank pain # acute cystitis # hematuria # nausea and vomiting Plan Continuing current management with ceftriaxone and metronidazole. Continuing with Protonix. Continuing with clear liquid diet and advance as tolerated. Continuing with sliding scale insulin. Continuing with losartan. Continuing with find no fibrate. Advised smoking sensation. Continuing nicotine patch. Plan discussed with: Patient Date of Service: Oct 02, 2024 Billing Provider: CARON MOLINA MD Common Visit Codes: [id number] INP/OBS CARE(HIGH) CARON MOLINA MD Oct 02, 2024 11:26
[2024-10-02] MEDS: MORPHINE SULFATE 4 MG/ML SYR/VIAL IV PRN (15:11)
[2024-10-03 01:00] VITALS: BP 100/68; PULSE 74; RESP 18; TEMP 98.7; O2SAT 92
[2024-10-03 05:00] VITALS: BP 105/68; PULSE 87; RESP 18; TEMP 99; O2SAT 92
[2024-10-03 09:00] VITALS: BP 114/73; PULSE 85; RESP 17; TEMP 97.8; O2SAT 92
--- NOTE | 2024-10-03 11:36 | DVHPN2 ---
Subjective The patient seen and examined at bedside. Complain of abdominal pain. The patient one Dilaudid instead of morphine. The patient required pain medication around the clock. Reviewed: Care Plan, H&P, Labs, Medications, Previous Orders, Radiology Changes from previous H/P or p: No Changes Eyes: No Pain, No Vision change, No Conjunctivae inflammation, No Eyelid inflammation, No Other, No Redness ENT: No Ear pain, No Ear discharge, No Nose pain, No Nose discharge, No Nose congestion, No Mouth pain, No Mouth swelling, No Throat pain, No Throat swelling, No Other Cardiovascular: No Chest Pain, No Palpitations, No Orthopnea, No Paroxysmal Noc. Dyspnea, No Edema, No Lt Headedness, No Other Respiratory: No Cough, No Dry, No Shortness of breath, No SOB with excertion, No Wheezing, No Hemoptysis, No Pleuritic Pain, No Sputum, No Other Gastrointestinal: Nausea, Vomiting, Abdominal Pain, Diarrhea; No Constipation, No Melena, No Hematochezia, No Other Genitourinary: No Dysuria, No Frequency, No Incontinence; Hematuria; No Retention; Other (Left flank pain) Musculoskeletal: No other, No neck pain, No shoulder pain, No arm pain, No back pain, No hand pain, No leg pain, No foot pain Skin: No Rash, No Lesions, No Jaundice, No Bruising, No Other Objective Vitals Vital Signs Date Time Temp Pulse Resp B/P (MAP) Pulse Ox O2 Delivery O2 Flow Rate FiO2 10/03/24 10:56 83 18 117/77 10/03/24 09:00 97.8 92 97.8 10/03/24 08:00 Room Air* 0 21 Intake/Output Intake and Output 10/03/24 07:00 Intake Total 2990 ml Output Total 1290 ml Balance 1700 ml Intake Oral 1540 ml IV Total 1450 ml Output Urine Total 1290 ml General Appearance: Alert, Cooperative, No acute distress HEENT: Atraumatic, PERRLA, EOMI, Mucous membr. moist/pink Lungs: Clear to auscultation, Normal air movement Cardiovascular: Regular rate, Normal S1, Normal S2, No murmurs, Gallops, Rubs Abdomen: Normal bowel sounds, Soft, No tenderness Neuro: Strength at 5/5 X4 ext, Cranial nerves 3-12 NL Psych/Mental Status: Mental status NL Medications Current Medications Medications Dose Ordered Sig/Elizabeth Route Start Time Stop Time Status Last Admin Dose Admin Ceftriaxone Sodium 50 ml @ 100 mls/hr DAILY@09 IV 10/02/24 09:00 10/03/24 08:54 100 MLS/HR Metronidazole 100 ml @ 100 mls/hr Q8HR IV 10/01/24 14:00 10/03/24 05:34 100 MLS/HR Pantoprazole Sodium 40 mg DAILY IV 10/02/24 10:00 10/03/24 10:25 40 MG Sodium Chloride 1,000 ml @ 100 mls/hr Q10H IV 10/01/24 12:45 10/03/24 05:06 100 MLS/HR Acetaminophen/ Hydrocodone Bitart 1 tab Q4HP PRN PO 10/01/24 12:45 10/03/24 08:53 1 TAB Ondansetron HCl 4 mg Q4HP PRN IV 10/01/24 12:45 10/03/24 03:40 4 MG Acetaminophen 650 mg Q6HP PRN PO 10/01/24 12:45 Losartan Potassium 25 mg DAILY PO 10/02/24 10:00 Patient Own Medication 145 mg DAILY PO 10/02/24 10:00 Glipizide 10 mg BID PO 10/01/24 22:00 Diagnostic Test (Pha) 1 strip ACHS 10/01/24 17:00 10/03/24 05:40 1 STRIP Insulin Human Regular ACHS SC 10/01/24 17:00 Dextrose 50 ml UD PRN IV 10/01/24 12:45 Nicotine 1 patch DAILY TD 10/02/24 10:00 Diagnostic Test (Pha) 1 strip ACHS 10/01/24 17:00 Cancel Dextrose 50 ml UD PRN IV 10/01/24 12:45 Cancel Morphine Sulfate 4 mg Q3HPRN PRN IV 10/02/24 12:45 10/03/24 10:26 4 MG Laboratory Results Laboratory Tests 10/02/24 04:50 Urinalysis Test 10/01/24 10:02 Urine Color Red (Yellow) H Urine Clarity Cloudy (Clear) H Urine pH 5.5 (5.0-9.0) Urine Specific [place] 1.028 (1.001-1.035) Urine Protein 2+ (Negative) H Urine Ketones Negative (Negative) Urine Blood 3+ /uL (Negative) H Urine Nitrite Negative (Negative) Urine Bilirubin Negative (Negative) Urine Urobilinogen Normal mg/dL (Negative) Urine Leukocyte Esterase 1+ /uL (Negative) Urine RBC 8238 /hpf (0 - 3) Urine WBC 16 /hpf (0 - 3) Urine Squamous Epithelial Cells Few /hpf (<5) Urine Bacteria None seen /hpf (None Seen) Urine Glucose Normal mg/dL (Normal) Microbiology Microbiology Date/Time Source Procedure Growth Status 10/01/24 12:58 Blood Blood Culture - Preliminary NO GROWTH AFTER 24 HOURS OF INCUBATION. Resulted 10/01/24 10:02 Voided Urine Urine Culture - Preliminary Resulted Labs and/or images reviewed: Labs reviewed by me Assessment/Plan Assessment/Plan # Acute abdominal pain due to possible colitis # left flank pain # acute cystitis # hematuria # nausea and vomiting Plan Continuing current management with ceftriaxone and metronidazole. Continuing with Protonix. Continuing with clear liquid diet and advance as tolerated. Continuing with sliding scale insulin. Continuing with losartan. Continuing with fenofibrate. Advised smoking sensation. Continuing nicotine patch. I explained to the patient that hip pain is under control and I am we will not change morphine to Dilaudid. We will increase morphine to 4 mg IV q.3 hours p.r.n. for severe pain. Plan discussed with: Patient My Orders Orders - CARON MOLINA MD Procedure Category Date Status Time Morphine Sulfate PHA 10/02/24 In Process Injection 12:45 Date of Service: Oct 03, 2024 Billing Provider: CARON MOLINA MD Common Visit Codes: [id number] INP/OBS CARE(HIGH) CARON MOLINA MD Oct 03, 2024 11:36
[2024-10-03 13:00] VITALS: BP 134/85; PULSE 82; RESP 16; TEMP 98; O2SAT 93
[2024-10-03 17:00] VITALS: BP 138/82; PULSE 104; RESP 18; TEMP 99; O2SAT 93
[2024-10-03 22:00] VITALS: BP 130/81; PULSE 108; RESP 19; TEMP 98.3; O2SAT 93
[2024-10-04] VITALS (8 sets, daily range): BP systolic 112–131; BP diastolic 63–81; PULSE 68–100; RESP 16–19; TEMP 97.9–98.7; O2SAT 92–95
--- NOTE | 2024-10-04 11:33 | DVHPN2 ---
Subjective The patient seen and examined at bedside. The patient is still complain of severe abdominal pain. The patient is still adamant request Dilaudid.. Reviewed: Care Plan, H&P, Labs, Medications, Previous Orders, Radiology Changes from previous H/P or p: No Changes Eyes: No Pain, No Vision change, No Conjunctivae inflammation, No Eyelid inflammation, No Other, No Redness ENT: No Ear pain, No Ear discharge, No Nose pain, No Nose discharge, No Nose congestion, No Mouth pain, No Mouth swelling, No Throat pain, No Throat swelling, No Other Cardiovascular: No Chest Pain, No Palpitations, No Orthopnea, No Paroxysmal Noc. Dyspnea, No Edema, No Lt Headedness, No Other Respiratory: No Cough, No Dry, No Shortness of breath, No SOB with excertion, No Wheezing, No Hemoptysis, No Pleuritic Pain, No Sputum, No Other Gastrointestinal: Nausea, Vomiting, Abdominal Pain, Diarrhea; No Constipation, No Melena, No Hematochezia, No Other Genitourinary: No Dysuria, No Frequency, No Incontinence; Hematuria; No Retention; Other (Left flank pain) Musculoskeletal: No other, No neck pain, No shoulder pain, No arm pain, No back pain, No hand pain, No leg pain, No foot pain Skin: No Rash, No Lesions, No Jaundice, No Bruising, No Other Objective Vitals Vital Signs Date Time Temp Pulse Resp B/P (MAP) Pulse Ox O2 Delivery O2 Flow Rate FiO2 10/04/24 10:12 131/81 10/04/24 09:56 68 16 10/04/24 09:00 98.6 93 98.6 10/03/24 20:00 Room Air* 0 21 Intake/Output Intake and Output 10/04/24 07:00 Intake Total 1750 ml Output Total 750 ml Balance 1000 ml Intake Oral 300 ml IV Total 1450 ml Output Urine Total 750 ml # Voids 7 General Appearance: Alert, Cooperative, No acute distress HEENT: Atraumatic, PERRLA, EOMI, Mucous membr. moist/pink Lungs: Clear to auscultation, Normal air movement Cardiovascular: Regular rate, Normal S1, Normal S2, No murmurs, Gallops, Rubs Abdomen: Normal bowel sounds, Soft, No tenderness Neuro: Strength at 5/5 X4 ext, Cranial nerves 3-12 NL Psych/Mental Status: Mental status NL Medications Current Medications Medications Dose Ordered Sig/Elizabeth Route Start Time Stop Time Status Last Admin Dose Admin Ceftriaxone Sodium 50 ml @ 100 mls/hr DAILY@09 IV 10/02/24 09:00 10/04/24 09:55 100 MLS/HR Metronidazole 100 ml @ 100 mls/hr Q8HR IV 10/01/24 14:00 10/04/24 06:16 100 MLS/HR Pantoprazole Sodium 40 mg DAILY IV 10/02/24 10:00 10/04/24 09:57 40 MG Sodium Chloride 1,000 ml @ 100 mls/hr Q10H IV 10/01/24 12:45 10/03/24 16:44 100 MLS/HR Acetaminophen/ Hydrocodone Bitart 1 tab Q4HP PRN PO 10/01/24 12:45 10/04/24 11:12 1 TAB Ondansetron HCl 4 mg Q4HP PRN IV 10/01/24 12:45 10/04/24 09:56 4 MG Acetaminophen 650 mg Q6HP PRN PO 10/01/24 12:45 Losartan Potassium 25 mg DAILY PO 10/02/24 10:00 10/04/24 10:12 25 MG Patient Own Medication 145 mg DAILY PO 10/02/24 10:00 Glipizide 10 mg BID PO 10/01/24 22:00 Diagnostic Test (Pha) 1 strip ACHS 10/01/24 17:00 10/03/24 05:40 1 STRIP Insulin Human Regular ACHS SC 10/01/24 17:00 Dextrose 50 ml UD PRN IV 10/01/24 12:45 Nicotine 1 patch DAILY TD 10/02/24 10:00 Diagnostic Test (Pha) 1 strip ACHS 10/01/24 17:00 Cancel Dextrose 50 ml UD PRN IV 10/01/24 12:45 Cancel Morphine Sulfate 4 mg Q3HPRN PRN IV 10/02/24 12:45 10/04/24 09:56 4 MG Laboratory Results Laboratory Tests 10/02/24 04:50 Urinalysis Test 10/01/24 10:02 Urine Color Red (Yellow) H Urine Clarity Cloudy (Clear) H Urine pH 5.5 (5.0-9.0) Urine Specific [place] 1.028 (1.001-1.035) Urine Protein 2+ (Negative) H Urine Ketones Negative (Negative) Urine Blood 3+ /uL (Negative) H Urine Nitrite Negative (Negative) Urine Bilirubin Negative (Negative) Urine Urobilinogen Normal mg/dL (Negative) Urine Leukocyte Esterase 1+ /uL (Negative) Urine RBC 8238 /hpf (0 - 3) Urine WBC 16 /hpf (0 - 3) Urine Squamous Epithelial Cells Few /hpf (<5) Urine Bacteria None seen /hpf (None Seen) Urine Glucose Normal mg/dL (Normal) Microbiology Microbiology Date/Time Source Procedure Growth Status 10/01/24 12:58 Blood Blood Culture - Preliminary NO GROWTH AFTER 48 HOURS OF INCUBATION. Resulted 10/01/24 10:02 Voided Urine Urine Culture - Final Complete Labs and/or images reviewed: Labs reviewed by me Assessment/Plan Assessment/Plan # Acute abdominal pain due to possible colitis # left flank pain # acute cystitis # hematuria # nausea and vomiting Plan Continuing current management with ceftriaxone and metronidazole. Continuing with Protonix. Continuing with clear liquid diet and advance as tolerated. Continuing with sliding scale insulin. Continuing with losartan. Continuing with fenofibrate. Advised smoking sensation. Continuing nicotine patch. I explained to the patient that his pain is under control and I am we will not change morphine to Dilaudid. Continuing morphine to 4 mg IV q.3 hours p.r.n. for severe pain. Discussed with patient and at bedside regarding to abdominal pain due to colitis as it expected. The pain will improve when his colitis improved. I am not suggest to increase pain medication to Dilaudid because the more medication he takes, he might have constipation and med the pain worse. Encouraged the patient to deescalate his pain medication and not taking it around the clock. GI consult Plan discussed with: Patient, Spouse My Orders Orders - CARON MOLINA MD Procedure Category Date Status Time * Gi Dvh Collection Technician CONS 10/04/24 Transmitted 10:07 Complete Blood Count LAB 10/04/24 Logged 10:18 Basic Metabolic Panel LAB 10/04/24 Logged 10:18 Date of Service: Oct 04, 2024 Billing Provider: CARON MOLINA MD Common Visit Codes: [id number] INP/OBS CARE(HIGH) CARON MOLINA MD Oct 04, 2024 11:33
[2024-10-04 12:09] LABS: Basophils # (auto) 0 10 ^3/uL (0-0.2); Basophils % (auto) 0.1 % (0.0-2.0); Eosinophils # (auto) 0 10 ^3/uL (0-0.8); Eosinophils % (auto) 0.3 % (0.0-7.0); Hematocrit 39.7 % (41.0-53.0); Hemoglobin 13.8 g/dL (13.5-17.5); Lymphocytes # (auto) 0.9 10 ^3/uL (0.4-5.4); Lymphocytes % (auto) 5.8 % (10.0-50.0); Mean Corpuscular Hemoglobin 31.1 pg (28.0-32.0); Mean Corpuscular Hgb Conc. 34.9 g/dL (32.0-36.0); Mean Corpuscular Volume 89.1 fL (80.0-100.0); Monocytes # (auto) 0.7 10 ^3/uL (0-1.3); Monocytes % (auto) 4.7 % (0.0-12.0); Neutrophils % (auto) 89.1 % (37.0-80.0); Platelet Count (auto) 246 10^3/uL (140-450); Red Blood Cells 4.45 10^6/uL (4.5-5.90); Red Cell Distribution Width 12.8 % (11.8-14.3); White Blood Cell 15.7 10^3/uL (4.4-10.8)
[2024-10-04 12:19] LABS: Chloride 102 mmol/L (98-107); Potassium 3.8 mmol/L (3.5-5.1); Sodium 137 mmol/L (136-145)
[2024-10-04 12:20] LABS: Anion Gap 12 (5-15); Carbon Dioxide 23 mmol/L (20-31)
[2024-10-04 12:21] LABS: Calcium 9.4 mg/dL (8.7-10.4)
[2024-10-04 12:25] LABS: Blood Urea Nitrogen 11 mg/dL (9-23); Glucose 171 mg/dL (74-106)
[2024-10-05] VITALS (8 sets, daily range): BP systolic 122–142; BP diastolic 78–87; PULSE 79–95; RESP 18–20; TEMP 98.1–98.4; O2SAT 94–98
--- NOTE | 2024-10-05 11:48 | DVHPN2 ---
Subjective The patient seen and examined at bedside. No complaint today. Reviewed: Care Plan, H&P, Labs, Medications, Previous Orders, Radiology Changes from previous H/P or p: No Changes Eyes: No Pain, No Vision change, No Conjunctivae inflammation, No Eyelid inflammation, No Other, No Redness ENT: No Ear pain, No Ear discharge, No Nose pain, No Nose discharge, No Nose congestion, No Mouth pain, No Mouth swelling, No Throat pain, No Throat swelling, No Other Cardiovascular: No Chest Pain, No Palpitations, No Orthopnea, No Paroxysmal Noc. Dyspnea, No Edema, No Lt Headedness, No Other Respiratory: No Cough, No Dry, No Shortness of breath, No SOB with excertion, No Wheezing, No Hemoptysis, No Pleuritic Pain, No Sputum, No Other Gastrointestinal: Nausea, Vomiting, Abdominal Pain, Diarrhea; No Constipation, No Melena, No Hematochezia, No Other Genitourinary: No Dysuria, No Frequency, No Incontinence; Hematuria; No Retention; Other (Left flank pain) Musculoskeletal: No other, No neck pain, No shoulder pain, No arm pain, No back pain, No hand pain, No leg pain, No foot pain Skin: No Rash, No Lesions, No Jaundice, No Bruising, No Other Objective Vitals Vital Signs Date Time Temp Pulse Resp B/P (MAP) Pulse Ox O2 Delivery O2 Flow Rate FiO2 10/05/24 11:23 93 18 142/86 10/05/24 08:30 98.4 98 98.4 10/04/24 20:00 Room Air* 0 21 Intake/Output Intake and Output 10/05/24 07:00 Intake Total 100 ml Balance 100 ml IV Total 100 ml General Appearance: Alert, Cooperative, No acute distress HEENT: Atraumatic, PERRLA, EOMI, Mucous membr. moist/pink Lungs: Clear to auscultation, Normal air movement Cardiovascular: Regular rate, Normal S1, Normal S2, No murmurs, Gallops, Rubs Abdomen: Normal bowel sounds, Soft, No tenderness Neuro: Strength at 5/5 X4 ext, Cranial nerves 3-12 NL Psych/Mental Status: Mental status NL Medications Current Medications Medications Dose Ordered Sig/Elizabeth Route Start Time Stop Time Status Last Admin Dose Admin Ceftriaxone Sodium 50 ml @ 100 mls/hr DAILY@09 IV 10/02/24 09:00 10/05/24 08:11 100 MLS/HR Metronidazole 100 ml @ 100 mls/hr Q8HR IV 10/01/24 14:00 10/05/24 05:42 100 MLS/HR Pantoprazole Sodium 40 mg DAILY IV 10/02/24 10:00 10/05/24 08:11 40 MG Sodium Chloride 1,000 ml @ 100 mls/hr Q10H IV 10/01/24 12:45 10/04/24 12:26 100 MLS/HR Acetaminophen/ Hydrocodone Bitart 1 tab Q4HP PRN PO 10/01/24 12:45 10/05/24 09:20 1 TAB Ondansetron HCl 4 mg Q4HP PRN IV 10/01/24 12:45 10/05/24 08:10 4 MG Acetaminophen 650 mg Q6HP PRN PO 10/01/24 12:45 Losartan Potassium 25 mg DAILY PO 10/02/24 10:00 10/05/24 09:21 25 MG Patient Own Medication 145 mg DAILY PO 10/02/24 10:00 Glipizide 10 mg BID PO 10/01/24 22:00 Diagnostic Test (Pha) 1 strip ACHS 10/01/24 17:00 10/04/24 17:00 1 STRIP Insulin Human Regular ACHS SC 10/01/24 17:00 Dextrose 50 ml UD PRN IV 10/01/24 12:45 Nicotine 1 patch DAILY TD 10/02/24 10:00 Diagnostic Test (Pha) 1 strip ACHS 10/01/24 17:00 Cancel Dextrose 50 ml UD PRN IV 10/01/24 12:45 Cancel Morphine Sulfate 4 mg Q3HPRN PRN IV 10/02/24 12:45 10/05/24 11:23 4 MG Laboratory Results Laboratory Tests 10/04/24 11:56 Chemistry Test 10/04/24 11:56 Calcium Level 9.4 mg/dL (8.7-10.4) Urinalysis Test 10/01/24 10:02 Urine Color Red (Yellow) H Urine Clarity Cloudy (Clear) H Urine pH 5.5 (5.0-9.0) Urine Specific [place] 1.028 (1.001-1.035) Urine Protein 2+ (Negative) H Urine Ketones Negative (Negative) Urine Blood 3+ /uL (Negative) H Urine Nitrite Negative (Negative) Urine Bilirubin Negative (Negative) Urine Urobilinogen Normal mg/dL (Negative) Urine Leukocyte Esterase 1+ /uL (Negative) Urine RBC 8238 /hpf (0 - 3) Urine WBC 16 /hpf (0 - 3) Urine Squamous Epithelial Cells Few /hpf (<5) Urine Bacteria None seen /hpf (None Seen) Urine Glucose Normal mg/dL (Normal) Microbiology Microbiology Date/Time Source Procedure Growth Status 10/01/24 12:58 Blood Blood Culture - Preliminary NO GROWTH AFTER 72 HOURS OF INCUBATION. Resulted 10/01/24 10:02 Voided Urine Urine Culture - Final Complete Labs and/or images reviewed: Labs reviewed by me Assessment/Plan Assessment/Plan # Acute abdominal pain due to possible colitis # left flank pain # acute cystitis # hematuria # nausea and vomiting Plan Continuing current management with ceftriaxone and metronidazole. Continuing with Protonix. Continuing with clear liquid diet and advance as tolerated. Continuing with sliding scale insulin. Continuing with losartan. Continuing with fenofibrate. Advised smoking sensation. Continuing nicotine patch. I explained to the patient that his pain is under control and I am we will not change morphine to Dilaudid. Continue morphine to 4 mg IV q.3 hours p.r.n. for severe pain. Waiting for GI specialist to see the patient. Continuing IV antibiotics.. Plan discussed with: Patient Date of Service: Oct 05, 2024 Billing Provider: CARON MOLINA MD Common Visit Codes: [id number] INP/OBS CARE(HIGH) CARON MOLINA MD Oct 05, 2024 11:47
[2024-10-05 13:17] LABS: Basophils # (auto) 0 10 ^3/uL (0-0.2); Basophils % (auto) 0.2 % (0.0-2.0); Eosinophils # (auto) 0.1 10 ^3/uL (0-0.8); Eosinophils % (auto) 0.9 % (0.0-7.0); Hemoglobin 13.4 g/dL (13.5-17.5); Lymphocytes # (auto) 1.2 10 ^3/uL (0.4-5.4); Mean Corpuscular Hemoglobin 31.3 pg (28.0-32.0); Mean Corpuscular Hgb Conc. 35.3 g/dL (32.0-36.0); Mean Corpuscular Volume 88.8 fL (80.0-100.0); Monocytes # (auto) 0.9 10 ^3/uL (0-1.3); Neutrophils # (auto) 12.4 10 ^3/uL (1.6-8.6); Neutrophils % (auto) 84.9 % (37.0-80.0); Platelet Count (auto) 294 10^3/uL (140-450); Red Blood Cells 4.28 10^6/uL (4.5-5.90); Red Cell Distribution Width 12.7 % (11.8-14.3); White Blood Cell 14.6 10^3/uL (4.4-10.8)
[2024-10-05 13:35] LABS: Chloride 102 mmol/L (98-107); Potassium 3.5 mmol/L (3.5-5.1); Sodium 137 mmol/L (136-145)
[2024-10-05 13:36] LABS: Anion Gap 10 (5-15); Calcium 9.4 mg/dL (8.7-10.4); Carbon Dioxide 25 mmol/L (20-31)
[2024-10-05 13:41] LABS: BUN/Creatinine Ratio 8.6 (10.0-20.0); Blood Urea Nitrogen 12 mg/dL (9-23); Glucose 183 mg/dL (74-106)
--- NOTE | 2024-10-05 21:29 | DVHINCON2 ---
Date of service: Oct 05, [address] Rosas Reason for Consultation Abdominal pain slight diarrhea History of Present Illness This is a 54-year-old male presented to the emergency room with complaints of abdominal pain in the left lower quadrant with associated diarrhea and nausea was in the left lower quadrant. Patient had some urological symptoms for which she had some workup in the past for Urology which was negative. Patient had a CT scan done which showed colitis and hence the reason for the GI consult because of the abdominal pain diarrhea as well as a colon possible colitis in the CT scan stool tests ordered but pending Past Medical History Hypertension diabetes and hyperlipidemia Past Surgical History Appendectomy tonsillectomy Family History: Asthma G8 MOTHER G8 FATHER Hypertension G8 MOTHER G8 FATHER Family History Noncontributory Social History History of smoking mild drinking also Allergies: Coded Allergies: NO KNOWN ALLERGIES (Unverified , 08/30/23) Home Meds Active Scripts Amoxicillin & Pot Clavulanate (AUGMENTIN TABLET) 875 Mg Tb, 875 MG PO BID for 7 Days, #14 TAB Prov:TAWANA SOTO MD 09/04/23 Hydrocodone-Acetaminophen (Hydrocodone Bitartrate/AC 5-325 mg) 1 Tab Tab, 1 TAB PO TIDP PRN for 5 Days, #15 TAB Prov:TAWANA SOTO MD 09/04/23 Metronidazole (Flagyl) 500 Mg Tab, 500 MG PO TID for 7 Days, #21 TAB Prov:TAWANA SOTO MD 09/04/23 Reported Medications Tadalafil (Cialis) Unknown Strength Tab, PO, #30 TAB 5 Refills 10/01/24 Semaglutide (Rybelsus) 7 Mg Tab, 1 TAB PO DAILY 10/01/24 Insulin Glargine (Toujeo Solostar) 300 Unit/Ml Inj, 54 UNITS SC DAILY 10/01/24 Metformin Hydrochloride (Metformin Hcl) 500 Mg Tab, 1000 MG PO BID for 30 Days, MG 08/30/23 Fenofibrate (FENOFIBRATE) 145 Mg Tab, 145 MG PO DAILY, TAB 08/30/23 Losartan Potassium (Losartan Potassium) 25 Mg Tab, 25 MG PO DAILY for 30 Days, MG 08/30/23 Glipizide (Glipizide) 10 Mg Tab, 10 MG PO BID for 30 Days, MG 08/30/23 Review of Systems 10 point review of systems noncontributory Vital Signs Vital Signs Date Time Temp Pulse Resp B/P (MAP) Pulse Ox O2 Delivery O2 Flow Rate FiO2 10/05/24 18:41 78 18 154/68 10/05/24 16:30 98.1 95 98.1 10/05/24 08:10 Room Air* 0 21 Physical Exam Originally built and nourished male in no acute distress Vital stable Lungs clear HEENT examination no pallor or icterus Abdomen soft mild tenderness in the left lower quadrant no rigidity no guarding no masses bowel sounds are normal Extremities no edema no varicosities Neurological no focal deficits Labs/Diagnostic Data Labs Test 10/05/24 12:54 10/02/24 04:50 10/01/24 16:35 10/01/24 10:09 Range/Units White Blood Count 14.6 H 4.4-10.8 10^3/uL Red Blood Count 4.28 L 4.5-5.90 10^6/uL Hemoglobin 13.4 L 13.5-17.5 g/dL Hematocrit 38.0 L 41.0-53.0 % Mean Corpuscular Volume 88.8 80.0-100.0 fL Mean Corpuscular Hemoglobin 31.3 28.0-32.0 pg Mean Corpuscular Hemoglobin Concent 35.3 32.0-36.0 g/dL Red Cell Distribution Width 12.7 11.8-14.3 % Platelet Count 294 140-450 10^3/uL Mean Platelet Volume 7.1 6.9-10.8 fL Neutrophils (%) (Auto) 84.9 H 37.0-80.0 % Lymphocytes (%) (Auto) 8.0 L 10.0-50.0 % Monocytes (%) (Auto) 6.0 0.0-12.0 % Eosinophils (%) (Auto) 0.9 0.0-7.0 % Basophils (%) (Auto) 0.2 0.0-2.0 % Neutrophils # (Auto) 12.4 H 1.6-8.6 10 ^3/uL Lymphocytes # (Auto) 1.2 0.4-5.4 10 ^3/uL Monocytes # (Auto) 0.9 0-1.3 10 ^3/uL Eosinophils # (Auto) 0.1 0-0.8 10 ^3/uL Basophils # (Auto) 0 0-0.2 10 ^3/uL Nucleated Red Blood Cells 0.0 % Sodium Level 137 136-145 mmol/L Potassium Level 3.5 3.5-5.1 mmol/L Chloride Level 102 98-107 mmol/L Carbon Dioxide Level 25 20-31 mmol/L Anion Gap 10 5-15 Blood Urea Nitrogen 12 9-23 mg/dL Creatinine 1.40 H 0.700-1.30 mg/dL Glomerular Filtration Rate Calc 60 >90 mL/min BUN/Creatinine Ratio 8.6 L 10.0-20.0 Serum Glucose 183 H 74-106 mg/dL Calcium Level 9.4 8.7-10.4 mg/dL Total Bilirubin 0.6 0.2-1.0 mg/dL Aspartate Amino Transferase (AST) 12 L 13-40 U/L Alanine Aminotransferase (ALT) 18 7-40 U/L Alkaline Phosphatase 38 L 46-116 U/L Total Protein 5.9 5.7-8.2 g/dL Albumin 4.0 3.2-4.8 g/dL POC Glucose 127 H 70-106 mg/dl Hemoglobin A1c 6.6 H <5.7 % A1C Triglycerides Level 170 H < 150 mg/dL Cholesterol Level 152 < 200 mg/dL LDL Cholesterol 93 < 100 mg/dL HDL Cholesterol 45 40-59 mg/dL Lipase 116 H 12-53 U/L Test 10/01/24 10:02 Range/Units Urine Color Red H Yellow Urine Clarity Cloudy H Clear Urine pH 5.5 5.0-9.0 Urine Specific [place] 1.028 1.001-1.035 Urine Protein 2+ H Negative Urine Ketones Negative Negative Urine Blood 3+ H Negative /uL Urine Nitrite Negative Negative Urine Bilirubin Negative Negative Urine Urobilinogen Normal Negative mg/dL Urine Leukocyte Esterase 1+ Negative /uL Urine RBC 8238 0 - 3 /hpf Urine WBC 16 0 - 3 /hpf Urine Squamous Epithelial Cells Few <5 /hpf Urine Bacteria None seen None Seen /hpf Urine Glucose Normal Normal mg/dL Microbiology Date/Time Source Procedure Growth Status 10/01/24 12:58 Blood Blood Culture - Preliminary NO GROWTH AFTER 72 HOURS OF INCUBATION. Resulted 10/01/24 10:02 Voided Urine Urine Culture - Final Complete Assessment 54-year-old with complaints of abdominal pain left lower quadrant with diarrhea nausea history of some urinary problems in the past for which he had some workup which was unremarkable apparently no history of any unusual drug intake antibiotics intake no travel physical examination showed tenderness in the lower quadrants without any rigidity or guarding Clinical impression is possible colitis infectious versus ulcerative colitis or other inflammatory bowel disease Plan/Recommendation will recommend await the stool studies ordered Because of the hematuria still we will recommend possibly a neurological evaluation if symptoms are persistent We will also do a colon evaluation because of the abnormal CT scan and the symptom persistent symptoms to ensure there is no other pathology in the colon to account for the symptoms Procedure risks benefits alternatives explained to the patient and agreeable. Thank you Dr. Dianne Scruggs discussed with: Patient PATRICIA DANIELSON MD Oct 05, 2024 21:29
[2024-10-05] MEDS: GOLYTELY 4L KIT PO ONE (21:35)
[2024-10-05 23:24] LABS: Urine Bacteria None Seen /hpf (None Seen)
[2024-10-05 23:38] LABS: Urine Blood Negative /uL (Negative); Urine Clarity Clear (Clear); Urine Color Light-Yellow (Yellow); Urine Protein, UAD Negative (Negative); Urine Specific Gravity 1.013 (1.001-1.035); Urine Urobilinogen Normal (Negative); Urine WBC <1 /hpf (0 - 3)
[2024-10-06 01:00] VITALS: BP 128/79; PULSE 94; RESP 18; TEMP 98.3; O2SAT 95
[2024-10-06 05:00] VITALS: BP 152/88; PULSE 93; RESP 18; TEMP 98.5; O2SAT 93
[2024-10-06 08:15] VITALS: RESP 16
[2024-10-06] MEDS ORDERED: METR-344 PO (10:42)
[2024-10-06] MEDS ORDERED: LEVO500T91 PO (10:42)
--- NOTE | 2024-10-06 10:46 | DVHDS2 ---
Discharge Summary Date of Admission Oct 01, 2024 at 12:35 Date of Discharge: Oct 06, 2024 Admitting Diagnosis # Acute abdominal pain due to possible colitis # left flank pain # acute cystitis # hematuria # nausea and vomiting Labs/Diagnostic Data: Laboratory Results Test 10/05/24 21:50 10/05/24 21:44 10/05/24 12:54 10/02/24 04:50 Urine Color Light-yellow (Yellow) Urine Clarity Clear (Clear) Urine pH 6.0 (5.0-9.0) Urine Specific [place] 1.013 (1.001-1.035) Urine Protein Negative (Negative) Urine Ketones 1+ (Negative) Urine Blood Negative /uL (Negative) Urine Nitrite Negative (Negative) Urine Bilirubin Negative (Negative) Urine Urobilinogen Normal mg/dL (Negative) Urine Leukocyte Esterase Negative /uL (Negative) Urine RBC 3 /hpf (0 - 3) Urine WBC <1 /hpf (0 - 3) Urine Squamous Epithelial Cells Few /hpf (<5) Urine Bacteria None seen /hpf (None Seen) Urine Glucose 3+ mg/dL (Normal) Stool Occult Blood Negative (Negative) Stool Occult Blood Sample #3 (Negative) White Blood Count 14.6 10^3/uL (4.4-10.8) Red Blood Count 4.28 10^6/uL (4.5-5.90) Hemoglobin 13.4 g/dL (13.5-17.5) Hematocrit 38.0 % (41.0-53.0) Mean Corpuscular Volume 88.8 fL (80.0-100.0) Mean Corpuscular Hemoglobin 31.3 pg (28.0-32.0) Mean Corpuscular Hemoglobin Concent 35.3 g/dL (32.0-36.0) Red Cell Distribution Width 12.7 % (11.8-14.3) Platelet Count 294 10^3/uL (140-450) Mean Platelet Volume 7.1 fL (6.9-10.8) Neutrophils (%) (Auto) 84.9 % (37.0-80.0) Lymphocytes (%) (Auto) 8.0 % (10.0-50.0) Monocytes (%) (Auto) 6.0 % (0.0-12.0) Eosinophils (%) (Auto) 0.9 % (0.0-7.0) Basophils (%) (Auto) 0.2 % (0.0-2.0) Neutrophils # (Auto) 12.4 10 ^3/uL (1.6-8.6) Lymphocytes # (Auto) 1.2 10 ^3/uL (0.4-5.4) Monocytes # (Auto) 0.9 10 ^3/uL (0-1.3) Eosinophils # (Auto) 0.1 10 ^3/uL (0-0.8) Basophils # (Auto) 0 10 ^3/uL (0-0.2) Nucleated Red Blood Cells 0.0 % Sodium Level 137 mmol/L (136-145) Potassium Level 3.5 mmol/L (3.5-5.1) Chloride Level 102 mmol/L (98-107) Carbon Dioxide Level 25 mmol/L (20-31) Anion Gap 10 (5-15) Blood Urea Nitrogen 12 mg/dL (9-23) Creatinine 1.40 mg/dL (0.700-1.30) Glomerular Filtration Rate Calc 60 mL/min (>90) BUN/Creatinine Ratio 8.6 (10.0-20.0) Serum Glucose 183 mg/dL (74-106) Calcium Level 9.4 mg/dL (8.7-10.4) Total Bilirubin 0.6 mg/dL (0.2-1.0) Aspartate Amino Transferase (AST) 12 U/L (13-40) Alanine Aminotransferase (ALT) 18 U/L (7-40) Alkaline Phosphatase 38 U/L (46-116) Total Protein 5.9 g/dL (5.7-8.2) Albumin 4.0 g/dL (3.2-4.8) Test 10/01/24 16:35 10/01/24 10:09 POC Glucose 127 mg/dl (70-106) Hemoglobin A1c 6.6 % A1C (<5.7) Triglycerides Level 170 mg/dL (< 150) Cholesterol Level 152 mg/dL (< 200) LDL Cholesterol 93 mg/dL (< 100) HDL Cholesterol 45 mg/dL (40-59) Lipase 116 U/L (12-53) Other Laboratory Tests 10/05/24 12:54 Brief Hx & Hospital Course: This is a 54 years old male come to emergency department because of severe abdominal pain. The patient reports two weeks ago he was diagnosis with hematuria which he was seen by urologist in all tests come back negative. No stone per patient. The patient continuing to have blood in the urine and today he woke up in severe abdominal pain at the left lower quadrant associated with nausea, vomiting and diarrhea. The patient did not have any hematemesis or melena. The patient was admitted. Workup was done. CT scan abdomen pelvis showed: Concentric wall thickening of the descending colon and sigmoid colon, suggestive of infectious/inflammatory colitis. The patient was put on IV antibiotic Rocephin 1 g IV q.day and Flagyl 500 mg IV q.day. The patient was put on pain medication with IV morphine and [place]. The patient blood culture, urine culture and stool culture is negative. GI specialist see the patient and recommend colonoscopy. Patient however adamant declined the colonoscopy. He wanted to do it as outpatient. So today the patient tolerated diet. No nausea or vomiting. No diarrhea or constipation. No hematuria. I am going to discharge him home. Advised him to follow up with primary care physician 1-2 weeks. Follow up with GI specialist as outpatient for colonoscopy. Activity as tolerated. Diet per home diet. Physical exam: HEENT: Normocephalic atraumatic pupils equal react to light and accommodation. Extraocular muscles intact, conjunctiva pink, oropharynx moist, no thrush, no exudate. Lymphatic: No lymphadenopathy Cardiovascular exam: S1, S2 was heard. No murmurs, rubs, gallops Lung: Clear on auscultation bilaterally, no wheeze, rale, rhonchi. GI: Abdominal soft, nondistended, nontenderness, positive bowel sounds. Extremity: No crepitus, cyanosis, edema. Pedal pulses present bilateral. Full range of motion. Skin: Normal turgor, no rash. Psych: Alert, oriented x3. Neurology: No focal deficits, cranial nerve II to XII grossly intact. Condition at Discharge: Stable Final Diagnosis/Problems List # Acute abdominal pain due to possible colitis # left flank pain # acute cystitis # hematuria # nausea and vomiting Discharge Disposition: Home Discharge Instruct/Medications Diet: Cardiac 2g Na,low cholest Activity: No Restrictions, As Tolerated Follow Up/Referral: pcp 1-2 weeks GI specialist for colonoscopy as outpatient. Medications: Levaquin 500mg qday Flagyl 500mg tid Resume home meds Discharge Statement: "Patient was advised to return to the ER or call 911 if any headaches, dizziness, shortness of breath, chest pain, abdominal pain, bleeding, fevers, or worsening of medical condition. Patient was counseled about treatment plan, medications, possible side effects, patientverbalized understanding. All questions were answered to the best of my ability. This discharge took greater then 30 minutes in planning, reviewing documentation, counseling the patient, and discussing with other team members." ASSESSMENT ASSESSMENT Assessment colitis Date of Service: Oct 06, 2024 Billing Provider: CARON MOLINA MD Common Visit Codes: 07394-HKM/OBS DISCH DAY >30min CARON MOLINA MD Oct 06, 2024 10:46
[2024-10-06 11:11] VITALS: BP 143/84; PULSE 87; RESP 16; TEMP 36.9
== END 2024-10-06 12:25 | disposition home or self-care (01) | DRG 392 ==
LOC: ER 09:21 → OVERFLOW 12:35 → WEST WING 21:08
PROVIDERS: ADMIT Registered Nurse; ATTEND Internal Medicine
DX: K52.9 Noninfective gastroenteritis and colitis, unspecified (principal); N30.01 Acute cystitis with hematuria; E11.9 Type 2 diabetes mellitus without complications; I10 Essential (primary) hypertension; F17.210 Nicotine dependence, cigarettes, uncomplicated; E78.5 Hyperlipidemia, unspecified; Z82.5 Family history of asthma and other chronic lower respiratory diseases; Z82.49 Family history of ischemic heart disease and other diseases of the circulatory system
CPT/HCPCS: 36415; 74176; 76775; 80048; 80053; 80061; 81001; 82270; 82962; 83036; 83690; 85025; 87040; 87045; 87086; 87177; 87427; 96374; 96375; G0378; J1815; J2405; J2470; J3490